=== PATIENT | male | born 1950 | race Caucasian/White ===

== ENCOUNTER → 2016-10-23 | Outpatient (CLI) | payer OTHER, MEDICARE ==
--- NOTE | 2016-10-23 15:30 | DX ---
Left Foot - 3 views Indication: Status post removal of fifth toe hardware removal. Technique: AP, oblique, and lateral views. Comparison: Left foot series dated August 01, 2016. Findings: The 2 small cortical screws have been removed from the shaft of the fifth metatarsal since July 2016. The defects from the previous hardware are unchanged. No fracture or abnormality has d eveloped. The normally mineralized bones remain normally aligned. Impression: 1. Well aligned foot. 2. No abnormality or fracture following removal of 2 cortical screws in the fifth metatarsal.
== END ==
LOC: BMCIMAGING 14:44
PROVIDERS: ATTEND Podiatrist Foot & Ankle Surgery
DX: S92.352D Displaced fracture of fifth metatarsal bone, left foot, subsequent encounter for fracture with routine healing (principal)

== ENCOUNTER → 2016-11-21 | Outpatient (CLI) | payer OTHER, MEDICARE | LOC: BMCIMAGING 10:57 | PROVIDERS: ATTEND Podiatrist Foot & Ankle Surgery | DX: Z47.89 Encounter for other orthopedic aftercare (principal) ==

== ENCOUNTER → 2016-11-30 | Outpatient (CLI) | payer OTHER, MEDICARE | LOC: BMCIMAGING 09:25 | PROVIDERS: ATTEND Podiatrist Foot & Ankle Surgery | DX: M79.672 Pain in left foot (principal) ==

== ENCOUNTER 2017-04-16 15:52 | Inpatient (IN) | payer OTHER, MEDICARE ==
--- NOTE | 2017-04-16 16:15 | CPEKG ---
Heart Rate: 60 RR Interval: 1000 P-R Interval: 132 QRSD Interval: 86 QT Interval: 440 QTC Interval: 440 P Summit: 46 QRS Summit: 13 T Wave Summit: 31 EKG Severity - NORMAL ECG - EKG Impression: SINUS RHYTHM Electronically Signed By: Jaun Mcwilliams 16-Apr-2017 16:50:06
[2017-04-16] MEDS ORDERED: NS 1,000 ML IV ONE (16:46)
--- NOTE | 2017-04-16 16:49 | EDPHY ---
H & P Stated Complaint: Exertional CP Sunday "like something sitting on chest" [place] [facility] [place] Time Seen by Provider: 04/16/17 16:21 HPI/ROS: CHIEF COMPLAINT: Chest pain HISTORY OF PRESENT ILLNESS: The patient is a 66-year-old man who comes to the emergency department complaining of chest pain on Sunday. He states that he is a runner but has been out of shape because of a recent foot surgery. He went for a longer run on Sunday and after driving home felt lightheaded when he into his house. He states that he had to kneel down and barely made up the steps onto his bed. He felt like he was going to faint. He then developed chest heaviness radiating to both axilla and, dizziness and fatigue. He denies palpitations. He felt nauseous but did not vomit. He states that he had the symptoms for about 6 hours before they resolved. Sunday and Sunday his symptoms gradually improved. He no longer had any chest heaviness but felt sluggish, groggy and dizzy. Today he was feeling better and thought about going for another run. He saw his physician Dr. Blevins [place] [facility] [place] here for cardiac evaluation. They did perform an EKG there that is unchanged from his previous EKGs. He denies any cardiac or pulmonary history. REVIEW OF SYSTEMS: Constitutional: denies: chills, fever, recent illness, recent injury EENTM: denies: blurred vision, double vision, nose congestion Respiratory: denies: cough, shortness of breath Cardiac: See HPI Gastrointestinal/Abdominal: denies: abdominal pain, diarrhea, nausea, vomiting, blood streaked stools Genitourinary: denies: dysuria, frequency, hematuria, pain Musculoskeletal: denies: joint pain, muscle pain Skin: denies: lesions, rash, jaundice, bruising Neurological: See HPI denies: headache, numbness, paresthesia, tingling Hematologic/Lymphatic: denies: blood clots, easy bleeding, easy bruising Immunologic/allergic: denies: HIV/AIDS, transplant EXAM: GENERAL: Well-appearing, well-nourished and in no acute distress. HEAD: Atraumatic, normocephalic. EYES: Pupils equal round and reactive to light, extraocular movements intact, sclera anicteric, conjunctiva are normal. ENT: TMs normal, nares patent, oropharynx clear without exudates. Moist mucous membranes. NECK: Normal range of motion, supple without lymphadenopathy or JVD. LUNGS: Breath sounds clear to auscultation bilaterally and equal. No wheezes rales or rhonchi. HEART: Regular rate and rhythm without murmurs, rubs or gallops. ABDOMEN: Soft, nontender, normoactive bowel sounds. No guarding, no rebound. No masses appreciated. BACK: No CVA tenderness, no spinal tenderness, step-offs or deformities EXTREMITIES: Normal range of motion, no pitting or edema. No clubbing or cyanosis. NEUROLOGICAL: Cranial nerves II through XII grossly intact. Normal speech, normal gait. 5/5 strength, normal movement in all extremities, normal sensation PSYCH: Normal mood, normal affect. SKIN: Warm, dry, normal turgor, no visible rashes or lesions. Source: Patient Exam Limitations: No limitations - Personal History Current Tetanus Diphtheria and Acellular Pertussis (TDAP): Unsure - Medical/Surgical History Hx Asthma: No Hx Chronic Respiratory Disease: No Hx Diabetes: No Hx Cardiac Disease: No Hx Renal Disease: No Hx Cirrhosis: No Hx Alcoholism: No Other PMH: back issues. GERD - Family History Significant Family History: No pertinent family hx - Social History Smoking Status: Never smoked Alcohol Use: Sober Drug Use: None Constitutional: Initial Vital Signs Temperature (C) 36.7 C 04/16/17 16:00 Heart Rate 74 04/16/17 16:00 Respiratory Rate 16 04/16/17 16:00 Blood Pressure 147/100 H 04/16/17 16:00 O2 Sat (%) 95 04/16/17 16:00 O2 Delivery Mode Room Air Allergies/Adverse Reactions: No Known Allergies Allergy (Unverified 04/16/17 16:01) Home Medications: Medication Instructions Recorded Acetaminophen [Tylenol 325mg (*)] 325 - 650 mg PO Q6 PRN 04/16/17 Foot Cream TP DAILY 04/16/17 Herbals/Supplements -Info Only 1 ea PO DAILY 04/16/17 Naproxen Sodium [Aleve 220 MG (*)] 220 mg PO DAILY PRN 04/16/17 Omeprazole [Prilosec 20 mg] 20 mg PO DAILY18 04/16/17 Toenail Topical Solution TP DAILY 04/16/17 Trolamine Salicylate [Aspercreme] 1 magan TP DAILY 04/16/17 Medical Decision Making - Diagnostics EKG Interpretation: An EKG obtained and was read and documented in trace view. Please see trace view for full reading and report. Sinus rhythm, no acute ischemic changes Imaging Results: Imaging Impressions Chest X-Ray 04/16/17 16:46 Impression: Clear lungs with improved aeration. No acute process has developed. ED Course/Re-evaluation: Patient's troponin is positive. I discussed this with him. I suspect he had a myocardial infarction on Sunday and is recovering. I recommended admission and likely catheterization. The patient agrees. I discussed the case with Dr. Ramin Irby who will admit. Differential Diagnosis: Partial list of the Differential diagnosis considered include but were not limited to; acute coronary disease, arrhythmia, anxiety, dehydration and although unlikely based on the history and physical exam, I also considered infection, CVA, seizure. - Data Points Laboratory Results: Laboratory Results 04/16/17 16:15 04/16/17 16:15 04/16/17 04/16/17 04/16/17 16:15 16:15 16:15 WBC 5.42 10^3/uL 10^3/uL (3.80-9.50) RBC 5.47 10^6/uL 10^6/uL (4.40-6.38) Hgb 16.2 g/dL g/dL (13.7-17.5) Hct 47.9 % % (40.0-51.0) MCV 87.6 fL fL (81.5-99.8) MCH 29.6 pg pg (27.9-34.1) MCHC 33.8 g/dL g/dL (32.4-36.7) RDW 13.7 % % (11.5-15.2) Plt Count 236 10^3/uL 10^3/uL (150-400) MPV 10.4 fL fL (8.7-11.7) Neut % (Auto) 64.0 % % (39.3-74.2) Lymph % (Auto) 24.0 % % (15.0-45.0) Bureau % (Auto) 9.6 % % (4.5-13.0) Eos % (Auto) 1.1 % % (0.6-7.6) Baso % (Auto) 0.9 % % (0.3-1.7) Nucleat RBC Rel Count 0.0 % % (0.0-0.2) Absolute Neuts (auto) 3.47 10^3/uL 10^3/uL (1.70-6.50) Absolute Lymphs (auto) 1.30 10^3/uL 10^3/uL (1.00-3.00) Absolute Monos (auto) 0.52 10^3/uL 10^3/uL (0.30-0.80) Absolute Eos (auto) 0.06 10^3/uL 10^3/uL (0.03-0.40) Absolute Basos (auto) 0.05 10^3/uL 10^3/uL (0.02-0.10) Absolute Nucleated RBC 0.00 10^3/uL 10^3/uL (0-0.01) Immature Gran % 0.4 % % (0.0-1.1) Immature Gran # 0.02 10^3/uL 10^3/uL (0.00-0.10) PT 11.9 SEC L SEC (12.0-15.0) INR 0.89 (0.83-1.16) APTT 26.4 SEC SEC (23.0-38.0) D-Dimer 0.31 ug/mLFEU ug/mLFEU (0.00-0.50) Sodium 141 mEq/L mEq/L (134-144) Potassium 3.9 mEq/L mEq/L (3.5-5.2) Chloride 105 mEq/L mEq/L (97-110) Carbon Dioxide 23 mEq/l mEq/l (22-31) Anion Gap 13 mEq/L mEq/L (8-16) BUN 11 mg/dL mg/dL (7-23) Creatinine 0.9 mg/dL mg/dL (0.7-1.3) Estimated GFR > 60 Glucose 81 mg/dL mg/dL (70-100) Calcium 9.4 mg/dL mg/dL (8.5-10.4) Troponin I 0.039 ng/mL H ng/mL (0-0.034) Medications Given: Discontinued Medications Sodium Chloride (Ns) 1,000 mls @ 0 mls/hr IV ONCE ONE; Wide Open PRN Reason: Protocol Stop: 04/16/17 16:47 Last Admin: 04/16/17 16:50 Dose: 1,000 mls Departure - Departure Disposition: [facility] Inpatient Acute Clinical Impression: Chest pain Qualifiers: Chest pain type: unspecified Qualified Code(s): R07.9 - Chest pain, unspecified Condition: Fair
[2017-04-16 16:52] LABS: % IMMATURE GRANULYOCYTES 0.4 % (0.0-1.1); ABSOLUTE IMMATURE GRANULOCYTES 0.02 10^3/uL (0.00-0.10); ADD DIFF? NO; ADD MORPH? NO; ADD SCAN? NO; ATYPICAL LYMPHOCYTE FLAG 10 (0-99); FRAGMENT RBC FLAG 0 (0-99); HEMATOCRIT 47.9 % (40.0-51.0); HEMOGLOBIN 16.2 g/dL (13.7-17.5); LEFT SHIFT FLG 0 (0-99); LIPEMIA HEMOLYSIS FLAG 90 (0-99); MEAN CELL HEMOGLOBIN 29.6 pg (27.9-34.1); MEAN CELL HEMOGLOBIN CONCENTR. 33.8 g/dL (32.4-36.7); MEAN CELL VOLUME 87.6 fL (81.5-99.8); MEAN PLATELET VOLUME 10.4 fL (8.7-11.7); PLATELET CLUMPS FLAG 0 (0-99); PLATELET COUNT 236 10^3/uL (150-400); RED BLOOD CELL COUNT 5.47 10^6/uL (4.40-6.38); RED CELL DISTRIBUTION WIDTH 13.7 % (11.5-15.2)
[2017-04-16 16:59] LABS: ANION GAP 13 mEq/L (8-16); CALCIUM 9.4 mg/dL (8.5-10.4); CARBON DIOXIDE 23 mEq/l (22-31); CHLORIDE 105 mEq/L (97-110); CREATININE 0.9 mg/dL (0.7-1.3); GLOMERULAR FILTRATION RATE > 60; GLUCOSE 81 mg/dL (70-100); POTASSIUM 3.9 mEq/L (3.5-5.2); SODIUM 141 mEq/L (134-144)
[2017-04-16 17:04] LABS: INR 0.89 (0.83-1.16); PROTIME(PATIENT) 11.9 SEC (12.0-15.0)
[2017-04-16 17:05] LABS: APTT 26.4 SEC (23.0-38.0)
[2017-04-16 17:12] LABS: TROPONIN I 0.039 ng/mL (0-0.034)
[2017-04-16] MEDS ORDERED: NITROGLYCERIN 0.4 MG BTL SL PRN (21:15)
[2017-04-16] MEDS ORDERED: ONDANSETRON 4 MG/2 ML VIAL IVP PRN (21:15)
[2017-04-16] MEDS ORDERED: NON-FORMULARY NEW DRUG (Omeprazole [Prilosec 20 Mg] 20 MG) PO SCH (21:30)
--- NOTE | 2017-04-16 21:35 | GHP ---
[f rep st] HISTORY AND PHYSICAL DATE OF ADMISSION: 04/16/2017 CHIEF COMPLAINT: Dizziness. HISTORY OF PRESENT ILLNESS: This is a 66-year-old male, with history of GERD and low back pain. He was referred to [facility] emergency department from the [facility] due t o concerns for acute coronary syndrome. The patient reports having some hardware removed from his foot in September. Since then, he has gone back into running. He has been running intermittently for the past couple of months. He has been p utting on weight. On Sunday, he went for a 2-mile run where he felt "sluggish." He then increased his tempo for the remaining of his run where he felt somewhat better. When he got back to his house and walked in the door, he got hit with a cool blast of air and immediately felt very dizzy with so me chest tightness, as well as a sensation of weight on his shoulders. He immediately crawled into bed where he lay for 2 hours and slowly improved. He took some aspirin. Since Sunday, he has erlinda nued to have occasional dizziness. He was at the [facility] today while his was gettin g a colonoscopy, and thought he should get things checked out since he continues to have some dizzin ess. He denies any chest pain. PAST MEDICAL HISTORY: 1. GERD. 2. Low back pain. PAST SURGICAL HISTORY: 1. Foot surgery. 2. Kidney stone removal. 3. Cataract surgery. MEDICATIONS: Reviewed. Refer to [employer] for details. ALLERGIES: No known drug allergies. SOCIAL HISTORY: He denies any alcohol, tobacco, or illicit drug use. FAMILY HISTORY: Significant for coronary artery disease in his mother who had a 3-vessel CABG in he r 70s. REVIEW OF SYSTEMS: Comprehensive 10-point review of systems was done and is negative, except for as mentioned in the HPI. PHYSICAL EXAMINATION: VITAL SIGNS: Blood pressure 154/102, heart rate 71, respiratory rate 17, O2 saturation 93% on room air. Temperature afebrile. GENERAL: No acute distress. HEAD: Normocephal ic, atraumatic. EYES: PERRLA. Sclerae anicteric. MOUTH: Moist mucous membranes. NECK: Supple. No lymphadenopathy. CARDIOVASCULAR: S1-S2. No murmurs, rubs, clicks, gallops. No JVD. No lowe r extremity edema. PULMONARY: Lungs are clear. No wheezes, rales, or rhonchi. Normal respiratory effort. ABDOMEN: Soft, nontender, nondistended. No guarding or rebound tenderness. Normoactive bowel sounds. EXTREMITIES: No clubbing or cyanosis. NEURO: Cranial nerves 2-12 grossly intact. No focal motor or sensory deficits. SKIN: Clear, no rashes. DIAGNOSTICS: EKG, which I visualized and personally interpreted, showed sinus rhythm, rate 60 beats per minute, no acute ischemic changes. Chest x-ray: Lungs are clear. No signs of pneumonia. Hea rt was normal size. WBC is 5.4, hemoglobin 16.2, hematocrit 47.9, platelets 236. D-dimer unremarkable. Sodium 141, pot assium 3.9, chloride 105, BUN 11, creatinine 0.9, glucose 81. Troponin was. 0.039. ASSESSMENT/PLAN: This is a 66-year-old male, presenting with: 1. Chest discomfort that occurred on Sunday after going for a run, with persistent dizziness, and a feeling of malaise concerning for acute coronary syndrome./unstable angina. Plan: The patient elzbieta l be placed on observation where we will cycle his troponins. I discussed further risk stratificati on with the patient, which includes stress test versus cardiac catheterization. In this situation, I think it would be reasonable for him to go straight to cardiac catheterization. I will give the o n-call coat finisher a call to discuss this with the patient in the morning to decide what to do next . 2. Elevated blood pressure without history of hypertension. Plan: Given the patient's presentatio n, I will start him on metoprolol 25 mg b.i.d. We will continue to monitor his blood pressure. 3. History of gastroesophageal reflux disease. Plan: Continue proton pump inhibitor. /[id number]/MODL
[2017-04-16] MEDS: METOPROLOL TARTRATE 25 MG TAB PO SCH (22:28)
[2017-04-17 07:25] LABS: CHOLESTEROL 251 mg/dL (140-220); CHOLESTEROL/HDL RATIO 5.46 RATIO (1.00-4.97); HIGH DENSITY LIPOPROTEIN 46 mg/dL (40-65); LDL/HDL RATIO 3.83 RATIO (1.00-3.64); LOW DENSITY LIPOPROTEIN 176 mg/dL (80-100); NON-HIGH DENSITY LIPOPROTEIN 205 mg/dL (90-129); TRIGLYCERIDE 147 mg/dL (40-150); VERY LOW DENSITY LIPOPROTEINS 29 mg/dL (8-25)
[2017-04-17 10:52] LABS: COLOR PALE YELLOW; LEUKOCYTE ESTERASE,URINE NEGATIVE (NEGATIVE); NITRITE,URINE NEGATIVE (NEGATIVE)
[2017-04-17] MEDS: PANTOPRAZOLE SODIUM 40 MG TAB PO SCH ×2 (11:06→23:01)
[2017-04-17] MEDS: ASPIRIN EC 81 MG TAB PO SCH (11:06)
--- NOTE | 2017-04-17 13:10 | HOSPPROG ---
Hospitalist Progress Note Assessment/Plan: # CP/dizziness/indet trops - appreciate cards evaluation - LDL 176 - aspirin/BB # urinary retention - start flomax # htn - metop # GERD - ppi Subjective: no acute overnight events Objective: Vital Signs Temp Pulse Resp BP Pulse Ox 36.4 C 63 14 127/91 H 94 04/17/17 11:46 04/17/17 11:46 04/17/17 11:46 04/17/17 11:46 04/17/17 11:46 04/16/17 04/17/17 04/18/17 05:59 05:59 05:59 Intake Total 1050 Output Total 325 450 Balance 725 -450 PT 11.9 SEC (12.0-15.0) L 04/16/17 16:15 INR 0.89 (0.83-1.16) 04/16/17 16:15 ECG personally reviewed CXR personally reviewed chart reviewed - Physical Exam Constitutional: no apparent distress, appears nourished Cardiovascular: regular rate and rhythym, no murmur, rub, or gallop Respiratory: no respiratory distress, no rales or rhonchi, clear to auscultation Gastrointestinal: normoactive bowel sounds, other (suprapubic tenderness), No guarding, No rebound ICD10 Worksheet Patient Problems: Problems Problem Status Onset Chest pain Acute
[2017-04-17] MEDS ORDERED: diphenhydrAMINE 25 MG CAP PO ONE (13:29)
[2017-04-17] MEDS ORDERED: DIAZEPAM 5 MG TAB PO ONE (13:29)
[2017-04-17] MEDS: METOPROLOL TARTRATE 25 MG TAB PO SCH ×2 (13:33→20:19)
[2017-04-17] MEDS ORDERED: LIDOCAINE 1% 300 MG/30 ML SDV ONE (14:17)
[2017-04-17] MEDS ORDERED: IOPAMIDOL (ISOVUE-370) 150 ML BTL IV ONE (14:17)
[2017-04-17] MEDS ORDERED: MIDAZOLAM 2 MG/2 ML VIAL ONE (14:17)
[2017-04-17] MEDS ORDERED: fentaNYL 100 MCG/2 ML INJ ONE (14:17)
[2017-04-17] MEDS ORDERED: ATROPINE SULFATE 1 MG/10 ML SYR IVP PRN (16:34)
[2017-04-17] MEDS ORDERED: NITROGLYCERIN 0.4 MG BTL SL PRN (16:34)
--- NOTE | 2017-04-17 16:44 | PDDXCAT ---
Diagnostic Cath Note - . Date: 04/17/17 Measurement Coordinator: Eddi Indication: other (Chest pain and elevated troponin) - Procedure Access: right groin Procedure: left heart catheterization, coronary angiography, left ventriculogram - Materials Left Heart Cath size: 6F Left Heart Cath materials: standard multipack (JL4, JR4, pigtail) - Findings-Left Heart Catheterization LM: Normal. LAD: Proximal to mid-LAD with mild irregularities; 40-50% stenosis at the junction of the mid and distal thirds. First diagonal branch with a 70% ostial lesion. LCX: Mid-circumflex 60-70%. RCA: Mid-RCA 60-70%. Ramus: Proximal 80%. EDP: 15 mmHg LVEF: 50-55% Wall motion: No regional variation in contractility. Complications: None Estimated blood loss: <50ml Closure method: Angioseal Assessment: 1) Preserved LV systolic function. 2) Multi-vessel CAD. Plan: CT surgery consult for CABG. Patient Problems: Problems Problem Status Onset Chest pain Acute
[2017-04-17] MEDS: ACETAMINOPHEN 325 MG TAB PO PRN ×2 (18:31→23:05)
[2017-04-17] MEDS: TAMSULOSIN HCL 0.4 MG CAP PO SCH (18:31)
--- NOTE | 2017-04-17 19:19 | GCON ---
[f rep st] CONSULTATION DATE OF CONSULTATION: 04/17/2017 REFERRING PHYSICIAN: Ayden Hair MD REASON FOR CONSULTATION: Chest discomfort and elevated troponin. HISTORY: The patient is a 66-year-old male with no prior cardiac history. On Sunday last week, he went out for a run and says that he felt very sluggish. When he returned from his run, he walked in to some cold air in his home and experienced a sensation like a heavy weight across his shoulders an d neck. He felt very lightheaded. He lay down for a while, and eventually his symptoms improved. Over the next couple days, he did not have return of the weight-like discomfort but did have intermi ttent dizzy spells. Yesterday, his was here having a colonoscopy performed, and he decided to go to the emergency room to be evaluated. There, his vital signs and his ECG were normal. However, his troponin was minimally elevated at 0.039. Subsequent troponins have returned at 0.038 0.040. As mentioned, he has no prior cardiac history. He has not had any previous cardiac evaluation. His cardiac risk profile is notable for the absence of hypertension and diabetes. His cholesterol is e levated. He has never been a smoker. His mother had bypass surgery in her early 70s. He has not h ad any symptoms suggestive of arrhythmias or CHF. PAST MEDICAL HISTORY: 1. Gastroesophageal reflux. 2. Chronic back pain. PAST SURGICAL HISTORY: 1. Cataract surgery. 2. Kidney stone retrieval. 3. Foot surgery. MEDICATIONS: Please refer to the medication section of the electronic record. He is on no cardioac tive medications. ALLERGIES: No known drug allergies. FAMILY HISTORY: Notable for his mother's bypass surgery. SOCIAL HISTORY: He is . He has 1 adult daughter. He is retired and currently engages in [employer]. He tries to exercise regularly. Alcohol consumption is minimal. REVIEW OF SYSTEMS: Apart from the symptoms listed in the history of present illness, a 10-point rev iew is negative. PHYSICAL EXAMINATION: VITAL SIGNS: Heart rate in the 90s with sinus rhythm on the monitor, blood p ressure 127/91, O2 saturation 94% on room air. GENERAL: Well-developed, thin male in no acute dist ress. He is alert and oriented x3. HEAD AND NECK: No scleral icterus. Mucous membranes moist. C arotid pulses 2+ without bruits. There is no JVD. CHEST: Lung adorno clear to auscultation. CARD IAC: Regular rate and rhythm with normal S1 and S2. There is no murmur or gallop. ABDOMEN: Soft, nondistended, nontender with normal bowel sounds. EXTREMITIES: 2+ pulses and no peripheral edema. LABORATORY STUDIES: His troponin levels are outlined in the history of present illness. Sodium 141 , potassium 3.9, BUN and creatinine 11 and 0.9. Total cholesterol is 251 with HDL 46, LDL 176, and triglycerides 147. His CBC demonstrates a white blood cell count of 5.42 with hemoglobin and hemato crit of 16.2 and 47.9. Platelet count is 236,000. ECG: His ECG demonstrates normal sinus rhythm. There are no Q-waves or conduction system disturban velma. No ST-T wave abnormalities suggestive of ischemia. IMPRESSION: This is a 66-year-old male with a low-risk profile for coronary artery disease, who pre sents with symptoms of a heavy weight across his shoulders in conjunction with some dizziness. His original symptoms were precipitated by physical exertion. He has not had a return of the discomfort but has continued to have intermittent dizziness. He has mildly elevated troponin without an appre ciable rise and fall. PLAN: The patient's current clinical situation was reviewed with him, and options for diagnostic ev aluation of his cardiac status were reviewed. Currently, the plan is to proceed with cardiac cathet erization later today. Further diagnostic and therapeutic decisions await the outcome of that study . /[id number]/MODL
[2017-04-17] MEDS ORDERED: LACTULOSE 20 GM/30 ML UDCUP PO PRN (21:57)
[2017-04-17] MEDS ORDERED: MAGNESIUM HYDROXIDE 30 ML UDCUP PO PRN (21:57)
[2017-04-17] MEDS ORDERED: POLYETHYLENE GLYCOL 3350 17 GM PKT PO PRN (21:57)
[2017-04-17] MEDS ORDERED: BISACODYL 10 MG SUPP PR PRN (21:57)
[2017-04-17] MEDS ORDERED: LIDOCAINE 2% JELLY 20 ML (UROJECT) UR ONE (22:00)
[2017-04-18] MEDS: METOPROLOL TARTRATE 25 MG TAB PO SCH ×2 (08:22→20:54)
[2017-04-18] MEDS: ATORVASTATIN CALCIUM 40 MG TAB PO SCH (08:23)
[2017-04-18] MEDS: TAMSULOSIN HCL 0.4 MG CAP PO SCH (08:23)
[2017-04-18] MEDS: ASPIRIN EC 81 MG TAB PO SCH (08:23)
[2017-04-18] MEDS: PANTOPRAZOLE SODIUM 40 MG TAB PO SCH (08:24)
[2017-04-18] MEDS: SENNOSIDES/DOCUSATE SODIUM TAB PO SCH ×2 (08:25→21:05)
[2017-04-18] MEDS: TOLNAFTATE TP SCH (08:25)
--- NOTE | 2017-04-18 09:25 | ECHO ---
[id number] + + [address] : : [place] [address] : : [phone] + + Adult Echocardiographic Report + -------+ :Name: CHUY ALVAREZ CStudy Date: 04/18/2017 08:00 AM : : Hospital Admission Number: [id number] Locati on: 205: :: 1950 Gender: Male Height: 70 in : :Age: 66 yrs Race: WH Weight: 158 lb : :Reason For Study: CAD : : BSA: 1.9 meter s2 : + -------+ MMode/2D Measurements \T\ Calculations IVSd: 0.52 cm LVIDd: 4.9 cm FS: 33.8 % Ao root diam: LVPWd: 0.82 cm LVIDs: 3.2 cm EDV(Teich): 3.5 cm 111.1 ml LA dimension: ESV(Teich): 3.5 cm 41.7 ml EF(Teich): 62.4 % LVLd ap4: 8.1 cm SV(MOD-sp4): EDV(MOD-sp4): 33.0 ml 56.0 ml LVLs ap4: 6.4 cm ESV(MOD-sp4): 23.0 ml EF(MOD-sp4): 58.9 % Normal Measurement Values: + + :LVIDd (3.5-5.7cm) IVSd (0.6-1.1cm) LVPWd (0.6-1.1cm) Aortic Root (2.0-3.7cm)Left Atrium (1.5-4.0cm): :LV Vol(d) (76-115ml) LV Vol(s) (29-48ml) Ejec Fraction (50-65%)PV Caden (0.6- 1.2m/s) TV Caden (0.4-1.0m/s) : :MV E Caden (0.8-1.0m/s)MV A Caden (0.3-1.0m/s)LVOT Caden (0.7-1.2m/s) Asc Ao Caden ( 0.9-1.8m/s) : + + Doppler Measurements \T\ Calculations MV E max caden: 48.9 cm/sec Ao V2 max: 108.6 cm/sec MV A max caden: 61.2 cm/sec Ao max P.7 mmHg MV E/A: 0.80 Left Ventricle The left ventricle is normal in size. There is normal left ventricular wall thickness. Left ventricular systolic function is normal. Ejection Fraction = 60-65%. No regional wall motion abnormalities noted. Right Ventricle The right ventricle is normal in size and function. Atria The left atrial size is normal. Right atrial size is normal. The interatrial septum is intact with no evidence for an atrial septal defect. Mitral Valve The mitral valve is normal in structure and function. There is no evidence of mitral valve prolapse. There is no mitral valve stenosis. Tricuspid Valve Normal tricuspid valve. There is trace tricuspid regurgitation. Aortic Valve The aortic valve is trileaflet. The aortic valve opens well. There is no aortic stenosis. There is no aortic insufficiency. Pulmonic Valve The pulmonic valve is normal in structure and function. There is no pulmonic valvular regurgitation. Great Vessels The aortic root is normal size. Pericardium/Pleural There is no pericardial effusion. Conclusion A complete two-dimensional transthoracic echocardiogram was performed (2D, M-mode, Doppler and color flow Doppler). Left ventricular systolic function is normal. Ejection Fraction = 60-65%. Normal appearing valvular structures. There is trace tricuspid regurgitation. Final Reading Physician: Perla Sommers signed on 04/18/2017 09:23 AM Ordering Physician: Ty Montague Performed By: Nicole Simpson, [facility]
[2017-04-18] MEDS: ACETAMINOPHEN 325 MG TAB PO PRN ×2 (10:40→20:53)
--- NOTE | 2017-04-18 11:31 | HOSPPROG ---
Hospitalist Progress Note Assessment/Plan: # multivessel CAD - appreciate cards evaluation - LDL 176 - statin started - aspirin/BB - CABG likely Sunday # urinary retention/dysuria - arcos placed - check CT (has hx of renal stones) - urology consulted # htn - metop # GERD - ppi Subjective: ongoing dizziness Objective: Vital Signs Temp Pulse Resp BP Pulse Ox 36.5 C 75 10 L 112/76 95 04/18/17 07:50 04/18/17 07:50 04/18/17 07:50 04/18/17 07:50 04/18/17 07:50 04/17/17 04/18/17 04/19/17 05:59 05:59 05:59 Output Total 425 Balance -425 PT 11.9 SEC (12.0-15.0) L 04/16/17 16:15 INR 0.89 (0.83-1.16) 04/16/17 16:15 tele reviewed - benign discussed with Dr Montague ICD10 Worksheet Patient Problems: Problems Problem Status Onset Chest pain Acute
--- NOTE | 2017-04-18 12:37 | PDCARPN ---
Cardiology Progress Note Assessment/Plan: Coronary Artery Disease- No further angina. Minimal troponin elevation. CABG planned for tomorrow. Long-term aggressive secondary prevention. Hyperlipidemia- Statin therapy started. Goal LDL less than 70. Currently at 176. 04/18/17 12:36 Subjective: No complaints. Reviewed/Discussed With: family, hospitalist Objective: Vital Signs (8 Hrs) Temp Pulse Resp BP Pulse Ox 04/18/17 11:28 80 17 92 04/18/17 07:50 36.5 C 75 10 L 112/76 95 Intake/Output (24 Hrs) 04/17/17 04/18/17 04/19/17 05:59 05:59 05:59 Output Total 425 Balance -425 Output: Urine (ml) 425 Catheter 350 Urinal 75 Other: Number of Voids Urinal 1 Bladder Scan Volume (ml) Urinal 200 Result Diagrams: 04/16/17 16:15 04/16/17 16:15 - Physical Exam Constitutional: WDWN, no apparent distress Eyes: anicteric sclera Ears, Nose, Mouth, Throat: moist mucous membranes Cardiovascular: regular rate and rhythm, no murmurs, no rubs, no gallops Respiratory: clear to auscultate bilat Gastrointestinal: normoactive bowel sounds, no tenderness, no masses Skin: no rashes, no edema Neurologic: AAOx3 Psychiatric: not anxious ICD10 Worksheet Patient Problems: Problems Problem Status Onset Chest pain Acute
[2017-04-18 16:46] LABS: HEMOGLOBIN A1C 5.3 % (4.0-6.0)
[2017-04-18] MEDS ORDERED: CHLORHEXIDINE GLUC HIBICLENS 118 ML BTL TP SCH (21:00)
[2017-04-18] MEDS: MUPIROCIN 2% 22 GM OINT NS SCH (21:44)
[2017-04-19 05:27] LABS: ANION GAP 9 mEq/L (8-16); CALCIUM 8.6 mg/dL (8.5-10.4); CARBON DIOXIDE 20 mEq/l (22-31); CHLORIDE 111 mEq/L (97-110); GLOMERULAR FILTRATION RATE > 60; GLUCOSE 89 mg/dL (70-100); POTASSIUM 4.2 mEq/L (3.5-5.2); SODIUM 140 mEq/L (134-144)
[2017-04-19] MEDS ORDERED: DOPamine/DEXTROSE/250 ML BAG IV ONE (06:26)
[2017-04-19] MEDS ORDERED: POTASSIUM Cl (KCl) 20 MEQ/50 ML BAG IV ONE (06:26)
[2017-04-19] MEDS ORDERED: MILRINONE/DEXTROSE/100 ML BAG IV ONE (06:26)
[2017-04-19] MEDS ORDERED: ADENOSINE 6 MG/2 ML VIAL ONE (06:26)
[2017-04-19] MEDS ORDERED: CALCIUM CHLORIDE 1 GM/10 ML INJ ONE (06:26)
[2017-04-19] MEDS ORDERED: niCARdipine/NACL/200 ML BAG IV ONE (06:26)
[2017-04-19] MEDS ORDERED: MAGNESIUM SULFATE 1 GM/2 ML VIAL ONE (06:26)
[2017-04-19] MEDS ORDERED: LIDOCAINE 2% 100 MG/5 ML SYR ONE ×2 (06:26→11:23)
[2017-04-19] MEDS ORDERED: AMIODARONE HCL 150 MG/3 ML VIAL ONE (06:26)
[2017-04-19] MEDS ORDERED: NA BICARBONATE 50 MEQ/50 ML VIAL ONE ×2 (06:26→16:27)
[2017-04-19] MEDS ORDERED: CITRATE DEXTROSE SOLN 500 ML BAG ONE (06:26)
[2017-04-19] MEDS ORDERED: ceFAZolin 1 GM VIAL ONE (06:26)
[2017-04-19] MEDS ORDERED: ALBUMIN 5% 250 ML BOTTLE IV ONE (06:26)
[2017-04-19] MEDS ORDERED: methylPREDNISolone SOD SUCC 1 GM/8 ML VIAL ONE (06:26)
[2017-04-19] MEDS ORDERED: HEPARIN 10,000 UNIT/10 ML MDV ONE (06:26)
[2017-04-19] MEDS ORDERED: AMINOCAPROIC ACID 5 GM/20 ML VIAL ONE (06:26)
[2017-04-19] MEDS ORDERED: PROTAMINE SULFATE 50 MG/5 ML VIAL IVP ONE (06:26)
[2017-04-19] MEDS ORDERED: niCARdipine/NACL 200 ML IV ONE (09:00)
[2017-04-19] MEDS ORDERED: VERAPAMIL 5 MG, NITROGLYCERIN 2.5 MG, HEPARIN 500 UNIT, SODIUM BICARBONATE 0.2 MEQ in L... MISC ONE (09:00)
[2017-04-19] MEDS ORDERED: PHENYLEPHRINE HCL 50 MG in NS 250 ML IV ONE (09:00)
[2017-04-19] MEDS ORDERED: ceFAZolin 2 GM/DEXTROSE 100 ML IV ONE (09:00)
[2017-04-19] MEDS ORDERED: MANNITOL 25% 12.5 GM/50 ML VIAL IV ONE (09:00)
[2017-04-19] MEDS ORDERED: NS 1,000 ML IV ONE (09:00)
[2017-04-19] MEDS ORDERED: NOREPINEPHRINE BITARTRATE 16 MG in NS 250 ML IV ONE (09:00)
[2017-04-19] MEDS ORDERED: INSULIN REGULAR HUMAN 100 UNIT in NS 100 ML IV ONE (09:00)
[2017-04-19] MEDS ORDERED: CITRATE DEXTROSE SOLN 500 ML BAG MISC ONE (09:00)
[2017-04-19] MEDS ORDERED: SODIUM BICARBONATE 20 MEQ, LIDOCAINE 1% 10 ML in NORMOSOL-R 1,000 ML MISC ONE (09:00)
[2017-04-19] MEDS ORDERED: AMINOCAPROIC ACID 5 GM/20 ML VIAL IV ONE (09:00)
[2017-04-19] MEDS: ASPIRIN EC 81 MG TAB PO SCH (09:13)
[2017-04-19] MEDS: ATORVASTATIN CALCIUM 40 MG TAB PO SCH (09:14)
[2017-04-19] MEDS: TOLNAFTATE TP SCH (09:15)
[2017-04-19] MEDS: PANTOPRAZOLE SODIUM 40 MG TAB PO SCH (09:15)
[2017-04-19] MEDS: SENNOSIDES/DOCUSATE SODIUM TAB PO SCH (09:15)
[2017-04-19] MEDS: TAMSULOSIN HCL 0.4 MG CAP PO SCH (09:15)
[2017-04-19] MEDS: MUPIROCIN 2% 22 GM OINT NS SCH ×2 (09:21→21:29)
[2017-04-19] MEDS: METOPROLOL TARTRATE 25 MG TAB PO SCH (09:22)
[2017-04-19] MEDS ORDERED: MINERAL OIL 10 ML VIAL ONE (09:27)
[2017-04-19] MEDS ORDERED: VERAPAMIL 5 MG/2 ML VIAL ONE ×2 (09:27→11:18)
[2017-04-19] MEDS ORDERED: PAPAVERINE HCL 60 MG/2 ML SDV ONE ×2 (09:27→11:18)
--- NOTE | 2017-04-19 10:35 | BCON ---
[f rep st] BEHAVIORAL HEALTH CONSULTATION DATE OF CONSULTATION: 04/18/2017 Patient seen at the request of Dr. Montague with the patient's permission. IMPRESSION: 1. Unstable angina pectoris with evidence of 3 vessel disease. 2. History of nephrolithiasis with prior stone removal. 3. Previous cataract surgery. 4. Gastroesophageal reflux disease. 5. Chronic back pain. 6. Dysuria with obstructive symptoms on admission, negative for urinary tract infection. Urology diaz s been consulted. RECOMMENDATIONS: This patient should undergo coronary artery revascularization surgically on this a dmission. Consent was obtained from the patient. Risks and complications including alternatives with multivessel stenting or medical therapy were also reviewed. I will review this with his who is an managing attorney this afternoon when she is available. Overall risk is 1%. Bleeding, infection, stroke, and heart attack, are all less than 1%. CHIEF COMPLAINT: This is a 66-year-old gentleman, with a history of GERD and back pain, who was pre sented with acute coronary syndrome. He had gone for a run and returned and felt dizzy, lightheaded, with some pressure in his chest as well as a sensation of weight on his shoulders. He laid down, to ok aspirin. He continued to have dizziness and brought himself to the ER. Diagnostic cath revealed 3 vessel disease with good LV function. He did have a peak troponin of 0.04 . He is referred for surgical intervention. MEDICAL HISTORY: As stated. SURGERIES: Include foot surgery. ALLERGIES: Denied. MEDICATIONS: Were reviewed in the chart. REVIEW OF SYSTEMS: All 10 systems were reviewed. He does complain of persistent low back pain which is chronic and unchanged. Otherwise all 10 systems are unremarkable except for admitting history an d physical. FAMILY HISTORY: Significant for coronary disease in his mother who had coronary bypass grafting in her 70s. PHYSICAL EXAMINATION: GENERAL: This is a slender, middle-aged gentleman, in no apparent distress. A lert, oriented. HEENT: Normocephalic. CATIA, EOMI. NECK: Without bruit, adenopathy or thyromegaly. H EART: Rate is regular without murmur. LUNGS: Clear. ABDOMEN: Soft, nontender. Bowel sounds are activ e. RECTAL AND GENITAL: Deferred. Catheterization report is documented separately. Echo revealed ejection fraction 60%-65% with normal appearing valves and no significant structural a bnormalities. /[id number]/MODL
--- NOTE | 2017-04-19 10:50 | PDHPUP ---
History & Physical Update H&P update statement: This history and physical update is based on an assessment of the patient which was completed after admission or registration (within 24 hours), but prior to the surgery/procedure. H&P changes: CT abd notable for small left sided kidney stone, periurethral calcification and chronic prostatitis; no hydronephrosis or hydroureter. Gómez in place and draining well. Carotid US negative for disease or abnormal vertebral flow. A1c 5.3%, type and screen no antibodies. Denies CP or SOB awaiting surgery
[2017-04-19] MEDS ORDERED: MIDAZOLAM 2 MG/2 ML VIAL IVP ONE (10:54)
--- NOTE | 2017-04-19 10:59 | PDANEPAE ---
ANE History of Present Illness CAD s/f CABG ANE Past Medical History - Pulmonary History Hx Oxygen in Use at Home: No Hx Sleep Apnea: No Sleep Apnea Screening Result - Last Documented: Negative - Endocrine History Hx Diabetes: No - Renal History Hx Renal Disorders: Yes Renal History Comment: renal stones - GI History GERD: moderate (Hiatal Hernia) - Chronic Pain History Chronic Pain: Yes ANE Review of Systems - Exercise capacity METS (RN): 6 METS ANE Patient History - Allergies Allergies/Adverse Reactions: No Known Allergies Allergy (Unverified 04/16/17 16:01) - Home Medications Home Medications: Acetaminophen [Tylenol 325mg (*)] 325 - 650 mg PO Q6 PRN 04/16/17 [Last Taken 09:00] Diclofenac Sodium 1% [Voltaren Gel (*)] 1 magan TP DAILY 04/16/17 [Last Taken ] Herbals/Supplements -Info Only 1 ea PO DAILY 04/16/17 [Last Taken 04/16/17] Naproxen Sodium [Aleve 220 MG (*)] 220 mg PO DAILY PRN 04/16/17 [Last Taken Unknown] Omeprazole [Prilosec 20 mg] 20 mg PO DAILY18 04/16/17 [Last Taken 04/15/17] Tolnaftate [Formula 3] 15 ml TP DAILY 04/16/17 [Last Taken Unknown] Trolamine Salicylate [Aspercreme] 1 magan TP DAILY 04/16/17 [Last Taken 04/16/17] - NPO status NPO Since - Liquids (Date): 04/18/17 NPO Since - Liquids (Time): 21:00 NPO Since - Solids (Date): 04/18/17 NPO Since - Solids (Time): 16:30 - Smoking Hx Smoking Status: Never smoked - Alcohol Use Alcohol Use: Sober ANE Labs/Vital Signs - Labs Result Diagrams: 04/16/17 16:15 04/19/17 03:38 - Vital Signs Blood Pressure: 117/87 Heart Rate: 72 Respiratory Rate: 14 O2 Sat (%): 94 Height: 177.8 cm Weight: 69.6 kg ANE Physical Exam - Airway Neck exam: FROM Mallampati Score: Class 2 Mouth exam: poor dentition - Pulmonary Pulmonary: no respiratory distress - Cardiovascular Cardiovascular: regular rate and rhythym - ASA Status ASA Status: II ANE Anesthesia Plan Anesthesia Plan: general endotracheal anesthesia (R/B/A explained, no questions , agrees to proceed) Lines/Monitors: arterial line (by cts, femoral), central line (QL CVP), ROHITH (if goes easily)
[2017-04-19] MEDS ORDERED: DEXMEDETOMIDINE HCL 400 MCG in NS 100 ML IV SCH (11:00)
[2017-04-19] MEDS ORDERED: fentaNYL 50 MCG PATCH TD SCH (11:00)
[2017-04-19] MEDS ORDERED: DEXAMETHASONE 4 MG/ML VIAL ONE ×2 (11:22)
[2017-04-19] MEDS ORDERED: MIDAZOLAM 2 MG/2 ML VIAL ONE ×2 (11:22)
[2017-04-19] MEDS ORDERED: ROCURONIUM 100 MG/10 ML VIAL ONE (11:22)
[2017-04-19] MEDS ORDERED: REMIFENTANIL HCL 1 MG VIAL ONE (11:22)
[2017-04-19] MEDS ORDERED: PHENYLEPHRINE HCL 100 MCG/ML SYR ONE ×2 (11:22→13:04)
[2017-04-19] MEDS ORDERED: PROPOFOL/EMULSION 500 MG/50 ML BOTTLE IV ONE (11:22)
[2017-04-19] MEDS ORDERED: ONDANSETRON 4 MG/2 ML VIAL ONE (11:22)
[2017-04-19] MEDS ORDERED: LIDOCAINE HCL 160 MG/4 ML LTA KIT TP ONE (11:23)
[2017-04-19] MEDS ORDERED: epHEDrine SULFATE 10 MG/ML SYR ONE (11:23)
[2017-04-19] MEDS ORDERED: MAGNESIUM SULF 2 GM/WATER 50 ML BAG IV ONE (12:11)
[2017-04-19] MEDS ORDERED: LIDOCAINE 2% JELLY 20 ML (UROJECT) UR ONE (14:01)
--- NOTE | 2017-04-19 15:16 | GCON ---
[f rep st] CONSULTATION DATE OF CONSULTATION: 04/19/2017 REASON FOR CONSULT: Urinary retention and dysuria, history of kidney stones. HISTORY OF PRESENT ILLNESS: This is a pleasant 66-year-old male, who has previously seen Dr. Oleary for kidney stones. He is in the hospital after being referred by the [facility] for concerns of acute coronary syndrome, and is planning to undergo a cardiac procedure later today. Urologically, he is complaining of dysuria along with chronic low back pain. His dysuria started several days ago. The patient had a bladder scan, and was found to have over 200 mL in his bladder and a catheter was placed. The patient describes severe pain with insertion of catheter, now is having pain at the tip of his penis mostly associated with bowel movements. No flank discomfort. I reviewed his CT scan, both by myself and along with Dr. Holly, which potentially shows a very small fragment of a stone in the left proximal ureter, unlikely to be causing his dysuria. PAST MEDICAL HISTORY: GERD, low back pain, kidney stones. PAST SURGICAL HISTORY: Kidney stones, foot surgery, cataracts. MEDICATIONS: Reviewed. See [employer] for details. ALLERGIES: No known drug allergies. SOCIAL HISTORY: Denies alcohol, tobacco, or illicit drug use. FAMILY HISTORY: No pertinent urologic history. REVIEW OF SYSTEMS: A 10-point review of systems negative except as done in the HPI, the addition of the aforementioned chronic low-back pain, worse in the morning. PHYSICAL EXAM: VITAL SIGNS: Blood pressure 117/87, heart rate 17, respirations 14, O2 is 94, temperature 36.6. GENERAL: This is a well-developed , well-nourished male, in no acute distress. HEENT: Normocephalic, atraumatic. Extraocular movements intact. NECK: Supple. No lymphadenopathy. Trachea midline. RESPIRATORY: No accessory respiratory muscle use. CARDIAC : Regular rate. No lower extremity edema. No obvious JVD. GI: Abdomen is soft, nondistended, nontender to palpation. : No CVA tenderness right or left. No bladder distention. A catheter was in fully, draining clear urine. Urethral meatus with hypospadias. Palpation of the penile shaft was without abnormality or tenderness. INTEGUMENT: No obvious rashes or lesions. MUSCULOSKELETAL: Patient was ambulating when examined, moving all extremities without difficulty. NEURO: Patient is alert and oriented. Affect appropriate to situation. LABS: White blood cell count 5.42, hemoglobin 16.2, hematocrit 47.9, platelets 236. Chemistry: Sodium 140, potassium 4.2, chloride 111, carbon dioxide 20, anion gap 9, BUN 17, creatinine 1.6, glucose 89. PSA 3.7 in 2012. IMAGING: I personally reviewed the CT scan of his abdomen and pelvis, which does show large bilateral renal cysts, nonobstructing left renal mid pole stones , question of a small stone fragment in the left proximal ureter, a 3 mm calcified object in the area of the bulbar urethra along the Gómez catheter. ASSESSMENT AND PLAN: Urinary retention, dysuria, kidney stones. After review of this patient's imaging and discussion with Dr. Holly, recommend patient be continued on Flomax for possible sub 1 mm left ureteral stone; although this is unlikely to be contributing to his symptoms. May have Gómez catheter removed after his procedure to see if patient voids without difficulty. Also may try lidocaine to the tip of the urethra in case he does need to have Gómez replaced, for pain. Recommend he be evaluated in our office with a cystoscopy at some point to evaluate for possible calcification in the urethra or in the urethral wall, and a further discussion of management of his kidney stone burden. /[id number]/MODL MTDD
[2017-04-19] MEDS ORDERED: SUGAMMADEX SODIUM 200 MG/2 ML VIAL IVP ONE (15:22)
[2017-04-19] MEDS ORDERED: D50W 25 GM/50 ML SYR IVP PRN (15:34)
[2017-04-19] MEDS ORDERED: METOCLOPRAMIDE 10 MG/2 ML VIAL IVP PRN (15:34)
[2017-04-19] MEDS ORDERED: MAGNESIUM SULF 2 GM/WATER 50 ML IV ONE (15:34)
[2017-04-19] MEDS ORDERED: CEPACOL LOZENGE PO PRN (15:34)
[2017-04-19] MEDS ORDERED: MEPERIDINE 25 MG/ML SYR IVP PRN (15:34)
[2017-04-19] MEDS ORDERED: PANTOPRAZOLE SODIUM 40 MG in NS 100 ML IV ONE (15:34)
[2017-04-19] MEDS ORDERED: ONDANSETRON DISINTEGRATING 4 MG TAB PO PRN (15:34)
[2017-04-19] MEDS ORDERED: POTASSIUM Cl (KCl) 50 ML IV PRN (15:34)
[2017-04-19] MEDS ORDERED: SODIUM CL NASAL 45 ML BTL EACHNARE PRN (15:34)
[2017-04-19] MEDS ORDERED: NS 1,000 ML IV SCH (15:45)
--- NOTE | 2017-04-19 15:52 | POSTOPPROG ---
Post Op Note Date of Operation: 04/19/17 Surgeon: Ty Emmanuel Station Detective: Maximilian Anesthesiologist: Tai Anesthesia: GET(General Endotracheal) Pre-op Diagnosis: AMI, ASHD Procedure: CAB 4 [place]-PLCX, Jen-RCA, SVG-Dgseqdistal LAD, EVH Inf/Abcess present in the surg proc area at time of surgery?: No EBL: 50-100
[2017-04-19] MEDS ORDERED: INSULIN REGULAR HUMAN 100 UNIT in NS 100 ML IV SCH (16:00)
--- NOTE | 2017-04-19 16:02 | CPEKG ---
Heart Rate: 64 RR Interval: 938 P-R Interval: 168 QRSD Interval: 84 QT Interval: 456 QTC Interval: 471 P [place]: 43 QRS [place]: 74 T Wave [place]: 36 EKG Severity - OTHERWISE NORMAL ECG - EKG Impression: SINUS RHYTHM EKG Impression: LOW VOLTAGE IN FRONTAL LEADS Electronically Signed By: Apollo Iyer 20-Apr-2017 10:08:11
[2017-04-19 16:11] LABS: CALCULATED OXYGEN SATURATION 87 % (92-95); O2 CONCENTRATIION 100 % (0-100)
--- NOTE | 2017-04-19 16:26 | GOP ---
[f rep st] OPERATIVE REPORT DATE OF OPERATION: 04/19/2017 SURGEON: Ty Emmanuel DO COOKIE MIXER HELPER: CHARO Black ANESTHESIOLOGIST: Suraj Lujan MD PREOPERATIVE DIAGNOSIS: Non-Q-wave myocardial infarction with severe 3-vessel disease. POSTOPERATIVE DIAGNOSIS: Non-Q-wave myocardial infarction with severe 3-vessel disease. PROCEDURE PERFORMED: 1. Coronary artery bypass grafting x4 with left internal mammary artery to the posterolateral circu mflex, right internal mammary artery to the right coronary artery, saphenous vein graft to the diago nal, sequential left anterior descending artery. 2. Endoscopic vein harvest. FINDINGS: Patient was noted to have 3-vessel disease. Please see cath report for details. DESCRIPTION OF PROCEDURE: He was consented for surgery, brought to the operating room, intubated, m onitoring lines were placed. He was prepped and draped in sterile classical manner. Sternotomy was performed. Both mammary arteries were harvested. They were 2 mm vessels with excellent flow. He was heparinized, cannulated. Biventricular function appeared to be normal. The aorta was without t hickening or calcification. Cardiopulmonary bypass was begun. A cardioplegic arrest was obtained w ith antegrade cardioplegia, topical hypothermia and systemic cooling. Initially, the left internal mammary artery was brought through a lateral pericardial incision and g rafted to the mid portion of the posterior circumflex because of its high-grade lesion and large ves harris. I then elected to use vein graft on the LAD diagonal system, because the LAD lesion was 50 pro ximally and 50-60 quite distally toward the apex, and the mammary would not reach that apex; that wa s the reason for using it on a big circumflex. I therefore grafted the LAD diagonal with sequential vein graft, brought off the ascending aorta. It was my thought that competitive flow in the LAD wo uld have closed the mammary, as well. Rewarming was begun while the mammary was grafted to the main right coronary artery, just after the takeoff of the marginal branch of the right, which was probed patent from the arteriotomy. A good q uality mammary was grafted without difficulty, tacked to the epicardium. The cross-clamp was remove d with suction on the ascending aortic vent. Spontaneous cardiac activity was noted to resume. The patient was rewarmed and weaned from bypass. Heparin was reversed with protamine. The cannula was removed and oversewn. Two ventricular pacing wires, 2 pleural and 1 mediastinal drains were placed . Thymic fat and pericardium were closed. Chest was closed in standard fashion. Patient was retur arianna to ICU in stable condition. /[id number]/MODL
[2017-04-19] MEDS ORDERED: SODIUM BICARBONATE 50 MEQ/50 ML SYR IVP ONE (16:45)
[2017-04-19] MEDS: fentaNYL 100 MCG/2 ML INJ IVP PRN ×2 (17:57→22:06)
[2017-04-19] MEDS ORDERED: ceFAZolin 2 GM/DEXTROSE 100 ML IV SCH (18:00)
--- NOTE | 2017-04-19 18:44 | POSTANESTH ---
Post Anesthetic Evaluation Cardiovascular Status: Normal, Stable Respiratory Status: Normal, Stable Level of Consciousness/Mental Status: Can Participate in Eval, Moderately Sleepy Pain Control: Adequate, Prn Tx Ordered Nausea/Vomiting Control: Adequate, Prn Tx Ordered Complications Possibly Related to Anesthesia: None Noted
[2017-04-19] MEDS ORDERED: NA BICARBONATE 50 MEQ/50 ML VIAL IV ONE (18:45)
[2017-04-19] MEDS: ALBUMIN 5% 250 ML IV PRN ×2 (20:04→21:02)
[2017-04-19 20:26] LABS: BASE EXCESS -3.9 mEq/L (-2.5-2.5); BICARBONATE 22 mEq/L (22-26); MEASURED OXYGEN SATURATION 94 % (92-95); TCO2 23 mEq/L (23-27)
[2017-04-19 20:27] LABS: PCO2 41 mmHg (34-38); PO2 71 mmHg (65-75)
[2017-04-19] MEDS: ceFAZolin 2 GM/DEXTROSE 100 ML IV SCH (21:28)
[2017-04-20] MEDS: HYDROCODONE/APAP 5/325 TAB PO PRN ×4 (00:57→20:06)
[2017-04-20] MEDS: fentaNYL 100 MCG/2 ML INJ IVP PRN (02:05)
[2017-04-20] MEDS ORDERED: AMIODARONE A.FIB-18HR INFSN (ORDER 3/3) IV ONE (02:30)
[2017-04-20 04:17] LABS: % IMMATURE GRANULYOCYTES 0.4 % (0.0-1.1); ABSOLUTE IMMATURE GRANULOCYTES 0.05 10^3/uL (0.00-0.10); ADD DIFF? NO; ADD MORPH? NO; ADD SCAN? NO; ATYPICAL LYMPHOCYTE FLAG 0 (0-99); FRAGMENT RBC FLAG 0 (0-99); HEMATOCRIT 33.5 % (40.0-51.0); HEMOGLOBIN 11.3 g/dL (13.7-17.5); LEFT SHIFT FLG 10 (0-99); LIPEMIA HEMOLYSIS FLAG 80 (0-99); MEAN CELL HEMOGLOBIN 29.7 pg (27.9-34.1); MEAN CELL HEMOGLOBIN CONCENTR. 33.7 g/dL (32.4-36.7); MEAN CELL VOLUME 88.2 fL (81.5-99.8); MEAN PLATELET VOLUME 10.5 fL (8.7-11.7); PLATELET CLUMPS FLAG 0 (0-99); PLATELET COUNT 123 10^3/uL (150-400); RED CELL DISTRIBUTION WIDTH 14.3 % (11.5-15.2)
[2017-04-20 04:30] LABS: ANION GAP 9 mEq/L (8-16); CARBON DIOXIDE 21 mEq/l (22-31); CHLORIDE 115 mEq/L (97-110); CREATININE 0.8 mg/dL (0.7-1.3); GLOMERULAR FILTRATION RATE > 60; GLUCOSE 96 mg/dL (70-100); POTASSIUM 4.4 mEq/L (3.5-5.2); SODIUM 145 mEq/L (134-144)
[2017-04-20] MEDS: ceFAZolin 2 GM/DEXTROSE 100 ML IV SCH ×3 (05:08→21:24)
[2017-04-20] MEDS: HEPARIN 5,000 UNIT/0.5 ML SYR SC SCH ×3 (05:08→21:23)
[2017-04-20 06:30] LABS: CALCULATED OXYGEN SATURATION 89 % (92-95); O2 CONCENTRATIION 40 % (0-100)
--- NOTE | 2017-04-20 07:38 | SOAPPROG ---
SOAP Progress Note Assessment/Plan: POD#1: CABGx4 (FISHER-circ, WIN-RCA, SVG-diag, SVG-LAD) Unstable angina/severe 3VD s/p CABGx4 - Transfer to PCU - FC as per urology, CT to remain to water seal d/t air leak, PWs wrapped and capped, AL out - BB/ASA/statin when appropriate - Heparin SQ/SCDs for DVT prophylaxis Acute blood loss anemia - Stable without the need for BP transfusions Dysuria, urinary retention, uretal/kidney stones - Mgmt as per urology GERD - Continue PPI Subjective: Denies CP/SOB Objective: Vital Signs Temp Pulse Resp BP Pulse Ox 36.4 C 87 20 103/66 91 L 04/20/17 04:00 04/20/17 06:00 04/20/17 06:00 04/20/17 06:00 04/20/17 06:00 Laboratory Results 04/20/17 04:10 04/20/17 04:10 04/19/17 04/20/17 04/21/17 05:59 05:59 05:59 Intake Total 840 2360 Output Total 520 2105 Balance 320 255 PT 11.9 SEC (12.0-15.0) L 04/16/17 16:15 INR 0.89 (0.83-1.16) 04/16/17 16:15 Physical Exam - Physical Exam General Appearance: WD/WN, alert, no apparent distress EENT: No scleral icterus (R), No scleral icterus (L) Neck: normal inspection Respiratory: No respiratory distress Cardiac/Chest: regular rate, rhythm Abdomen: non-tender, soft, No distended Skin: normal color, warm/dry Extremities: No pedal edema Neuro/Psych: no motor/sensory deficits, alert, normal mood/affect, oriented x 3 ICD10 Worksheet Patient Problems: Problems Problem Status Onset Acute blood loss anemia Acute CAD, multiple vessel Acute Chest pain Acute S/P CABG x 4 Acute ~04/19/17
[2017-04-20] MEDS ORDERED: traMADol 50 MG TAB PO PRN (09:12)
[2017-04-20] MEDS ORDERED: ACETAMINOPHEN 325 MG TAB PO PRN (09:12)
--- NOTE | 2017-04-20 09:15 | SOAPPROG ---
SOAP Progress Note Assessment/Plan: Assessment: Dysuria, mild urinary retention, ureteral stone Plan: Patient desires to keep catheter in for now due to limited mobility post op cards procedure which is reasonable. Recommend arcos catheter be removed AM of planned discharge to ensure patient can void appropriately before going home. Recommend he be continued on flomax for possible sub 1mm left ureteral stone. He is to see Dr Holly in office for outpatient cystoscopy to evalute urethral stone vs wall calcification. We will followup on patient as needed. 04/20/17 09:13 Subjective: Dysuria is minimal. No left flank pain. Limited mobility. Objective: Vital Signs Temp Pulse Resp BP Pulse Ox 36.4 C 87 20 103/66 91 L 04/20/17 04:00 04/20/17 06:00 04/20/17 06:00 04/20/17 06:00 04/20/17 06:00 Laboratory Results 04/20/17 04:10 04/20/17 04:10 04/19/17 04/20/17 04/21/17 05:59 05:59 05:59 Intake Total 840 2360 Output Total 520 2105 Balance 320 255 PT 11.9 SEC (12.0-15.0) L 04/16/17 16:15 INR 0.89 (0.83-1.16) 04/16/17 16:15 Physical Exam - Physical Exam General Appearance: alert, no apparent distress Respiratory: normal breath sounds, No respiratory distress Male Genitalia: other (catheter draining clear urine) Skin: warm/dry, other Neuro/Psych: no motor/sensory deficits, alert ICD10 Worksheet Patient Problems: Problems Problem Status Onset Acute blood loss anemia Acute CAD, multiple vessel Acute Chest pain Acute S/P CABG x 4 Acute ~04/19/17
[2017-04-20] MEDS: TAMSULOSIN HCL 0.4 MG CAP PO SCH (10:33)
[2017-04-20] MEDS: MUPIROCIN 2% 22 GM OINT NS SCH ×2 (10:34→21:08)
[2017-04-20] MEDS: PANTOPRAZOLE SODIUM 40 MG TAB PO SCH (10:34)
[2017-04-20] MEDS: TOLNAFTATE TP SCH (10:34)
[2017-04-20] MEDS: ASPIRIN EC 81 MG TAB PO SCH (10:34)
[2017-04-20] MEDS ORDERED: PHENAZOPYRIDINE HCL 200 MG TAB PO SCH (13:00)
[2017-04-20] MEDS ORDERED: PHENAZOPYRIDINE HCL 200 MG TAB PO PRN (13:33)
[2017-04-20] MEDS ORDERED: ALBUMIN 5% 250 ML BOTTLE IV ONE (20:13)
[2017-04-20] MEDS: ALBUMIN 5% 250 ML IV PRN (20:22)
[2017-04-20] MEDS ORDERED: AMIODARONE A.FIB-LOAD DOSE(ORDER 1/3) IV ONE (20:30)
[2017-04-20] MEDS ORDERED: ALBUMIN 5% 250 ML IV ONE (20:30)
[2017-04-20] MEDS ORDERED: AMIODARONE A.FIB-6HR INFSN (ORDER 2/3) IV ONE (20:30)
[2017-04-20] MEDS ORDERED: AMIODARONE HCL 100 ML IV ONE (21:00)
[2017-04-20 21:04] LABS: POTASSIUM 4.1 mEq/L (3.5-5.2)
[2017-04-20] MEDS ORDERED: FUROSEMIDE 20 MG/2 ML VIAL IVP ONE (22:30)
[2017-04-20] MEDS ORDERED: FUROSEMIDE 20 MG/2 ML VIAL ONE (22:30)
[2017-04-20] MEDS: TEMAZEPAM 15 MG CAP PO PRN (22:43)
[2017-04-21] MEDS: HYDROCODONE/APAP 5/325 TAB PO PRN ×4 (00:26→15:01)
[2017-04-21 00:44] LABS: POTASSIUM 4.2 mEq/L (3.5-5.2)
[2017-04-21] MEDS: TEMAZEPAM 15 MG CAP PO PRN ×3 (02:24→22:35)
[2017-04-21] MEDS ORDERED: AMIODARONE A.FIB-18HR INFSN (ORDER 3/3) IV ONE (02:30)
[2017-04-21 04:12] LABS: % IMMATURE GRANULYOCYTES 1.1 % (0.0-1.1); ABSOLUTE IMMATURE GRANULOCYTES 0.12 10^3/uL (0.00-0.10); ADD DIFF? NO; ADD MORPH? NO; ADD SCAN? NO; ATYPICAL LYMPHOCYTE FLAG 0 (0-99); FRAGMENT RBC FLAG 0 (0-99); HEMATOCRIT 29.7 % (40.0-51.0); HEMOGLOBIN 9.8 g/dL (13.7-17.5); LEFT SHIFT FLG 10 (0-99); LIPEMIA HEMOLYSIS FLAG 80 (0-99); MEAN CELL HEMOGLOBIN 29.7 pg (27.9-34.1); MEAN PLATELET VOLUME 10.5 fL (8.7-11.7); PLATELET CLUMPS FLAG 20 (0-99); PLATELET COUNT 107 10^3/uL (150-400); RED CELL DISTRIBUTION WIDTH 14.6 % (11.5-15.2)
[2017-04-21 04:32] LABS: ANION GAP 7 mEq/L (8-16); CARBON DIOXIDE 25 mEq/l (22-31); CHLORIDE 107 mEq/L (97-110); CREATININE 0.9 mg/dL (0.7-1.3); GLOMERULAR FILTRATION RATE > 60; GLUCOSE 131 mg/dL (70-100); POTASSIUM 4.3 mEq/L (3.5-5.2); SODIUM 139 mEq/L (134-144)
[2017-04-21] MEDS: HEPARIN 5,000 UNIT/0.5 ML SYR SC SCH ×3 (05:45→20:14)
[2017-04-21] MEDS: ceFAZolin 2 GM/DEXTROSE 100 ML IV SCH (05:45)
--- NOTE | 2017-04-21 07:30 | SOAPPROG ---
SOAP Progress Note Assessment/Plan: POD#2: CABGx4 (FISHER-circ, WIN-RCA, SVG-diag, SVG-LAD), EVH Unstable angina/severe 3VD s/p CABGx4 - FC to be removed as per urology, CT to remain to water seal d/t air leak, PWs wrapped and capped, AL out - BB/ASA/statin when appropriate - Heparin SQ/SCDs for DVT prophylaxis Acute blood loss anemia - Stable without the need for BP transfusions Dysuria, urinary retention, uretal/kidney stones - Mgmt as per urology GERD - PPI changed to BID H2 scott as per pt's request Post-op atrial fibrillation - Conversion to SR with amiodarone - Pressure not adequate for beta-scott - Thromboprophylaxis deferred d/t short duration of arrhythmia. Left atrial appendage not ligated d/t anatomy. If arrhythmia returns, will start Eliquis BID. Subjective: Pt concerned regarding eventual removal of Gómez catheter. Having hard time bringing up mucus. Objective: Vital Signs Temp Pulse Resp BP Pulse Ox 36.9 C 74 17 95/62 L 95 04/21/17 04:00 04/21/17 04:00 04/21/17 04:00 04/21/17 04:00 04/21/17 04:00 Laboratory Results 04/21/17 04:05 04/21/17 04:05 04/20/17 04/21/17 04/22/17 05:59 05:59 05:59 Intake Total 2360 1602 Output Total 2105 1495 Balance 255 107 PT 11.9 SEC (12.0-15.0) L 04/16/17 16:15 INR 0.89 (0.83-1.16) 04/16/17 16:15 Physical Exam - Physical Exam General Appearance: WD/WN, alert, no apparent distress EENT: No scleral icterus (R), No scleral icterus (L) Neck: normal inspection Respiratory: No respiratory distress Cardiac/Chest: regular rate, rhythm Abdomen: non-tender, soft, No distended Skin: normal color, warm/dry Extremities: No pedal edema Neuro/Psych: no motor/sensory deficits, alert, normal mood/affect, oriented x 3 ICD10 Worksheet Patient Problems: Problems Problem Status Onset Acute blood loss anemia Acute CAD, multiple vessel Acute Chest pain Acute S/P CABG x 4 Acute ~04/19/17
[2017-04-21] MEDS: TAMSULOSIN HCL 0.4 MG CAP PO SCH (08:09)
[2017-04-21] MEDS: ASPIRIN EC 81 MG TAB PO SCH (08:09)
[2017-04-21] MEDS: FAMOTIDINE 20 MG TAB PO SCH ×2 (08:09→17:30)
[2017-04-21] MEDS: TOLNAFTATE TP SCH (08:11)
[2017-04-21] MEDS: SENNOSIDES/DOCUSATE SODIUM TAB PO SCH ×2 (08:23→20:14)
[2017-04-21] MEDS ORDERED: CARVEDILOL 3.125 MG TAB PO SCH (18:00)
[2017-04-21] MEDS: AMIODARONE HCL 200 MG TAB PO SCH (20:13)
[2017-04-21] MEDS ORDERED: FUROSEMIDE 20 MG/2 ML VIAL IVP ONE (20:26)
[2017-04-21] MEDS ORDERED: AMIODARONE HCL 100 ML IV ONE (22:52)
[2017-04-21] MEDS ORDERED: METOPROLOL TARTRATE 25 MG TAB PO ONE (22:52)
[2017-04-21] MEDS ORDERED: POTASSIUM CL 20 MEQ TAB PO ONE (22:53)
[2017-04-21] MEDS: APIXABAN 5 MG TAB PO SCH (23:18)
[2017-04-22] MEDS ORDERED: FUROSEMIDE 40 MG/4 ML VIAL IVP ONE (00:18)
[2017-04-22] MEDS ORDERED: AMIODARONE HCL 100 ML IV ONE (04:38)
[2017-04-22] MEDS ORDERED: METOPROLOL TARTRATE 25 MG TAB PO ONE (04:42)
[2017-04-22 05:02] LABS: POTASSIUM 3.9 mEq/L (3.5-5.2)
[2017-04-22] MEDS: HYDROCODONE/APAP 5/325 TAB PO PRN ×2 (05:17→20:13)
[2017-04-22] MEDS ORDERED: METOPROLOL TARTRATE 5 MG/5 ML INJ IVP ONE (07:12)
[2017-04-22] MEDS ORDERED: POTASSIUM CL 20 MEQ TAB PO ONE (07:13)
--- NOTE | 2017-04-22 07:22 | SOAPPROG ---
SOAP Progress Note Assessment/Plan: POD#3: CABGx4 (FISHER-circ, WIN-RCA, SVG-diag, SVG-LAD), EVH Unstable angina/severe 3VD s/p CABGx4 - CT to bulb suction - BB/ASA/statin Acute blood loss anemia - Stable without the need for BP transfusions Dysuria, urinary retention, uretal/kidney stones - Gómez removed without dysuria/retention GERD - PPI changed to BID H2 scott as per pt's request Post-op atrial fibrillation - Continue amiodarone/metoprolol/Eliquis Subjective: Had palpitations over night and felt a little light-headed when standing up. Urinated all night. Pain well-controlled. Objective: Vital Signs Temp Pulse Resp BP Pulse Ox 37.1 C 152 H 16 99/70 L 94 04/22/17 04:00 04/22/17 05:13 04/22/17 04:00 04/22/17 05:13 04/22/17 04:00 Laboratory Results 04/21/17 04:05 04/22/17 04:42 04/21/17 04/22/17 04/23/17 05:59 05:59 05:59 Intake Total 1602 990 200 Output Total 1495 2720 Balance 107 -1730 200 PT 11.9 SEC (12.0-15.0) L 04/16/17 16:15 INR 0.89 (0.83-1.16) 04/16/17 16:15 Physical Exam - Physical Exam General Appearance: WD/WN, alert, no apparent distress EENT: No scleral icterus (R), No scleral icterus (L) Neck: normal inspection Respiratory: No respiratory distress Cardiac/Chest: irregularly irregular Abdomen: non-tender, soft, No distended Skin: normal color, warm/dry Extremities: pedal edema Neuro/Psych: no motor/sensory deficits, alert, normal mood/affect, oriented x 3 ICD10 Worksheet Patient Problems: Problems Problem Status Onset Acute blood loss anemia Acute CAD, multiple vessel Acute Chest pain Acute S/P CABG x 4 Acute ~04/19/17
[2017-04-22] MEDS: TAMSULOSIN HCL 0.4 MG CAP PO SCH (08:09)
[2017-04-22] MEDS: AMIODARONE HCL 200 MG TAB PO SCH ×2 (08:09→20:40)
[2017-04-22] MEDS: FAMOTIDINE 20 MG TAB PO SCH ×2 (08:09→20:40)
[2017-04-22] MEDS: ASPIRIN EC 81 MG TAB PO SCH (08:09)
[2017-04-22] MEDS: APIXABAN 5 MG TAB PO SCH ×2 (08:09→20:40)
[2017-04-22] MEDS ORDERED: ALBUMIN 5% 250 ML IV ONE (08:16)
[2017-04-22] MEDS: METOPROLOL TARTRATE 25 MG TAB PO SCH ×2 (08:55→20:40)
[2017-04-22] MEDS ORDERED: NS 500 ML IV ONE (10:06)
[2017-04-22] MEDS: SENNOSIDES/DOCUSATE SODIUM TAB PO SCH ×2 (13:22→20:39)
[2017-04-22] MEDS: TOLNAFTATE TP SCH (13:22)
[2017-04-22] MEDS: ATORVASTATIN CALCIUM 40 MG TAB PO SCH (13:26)
[2017-04-22] MEDS: ZOLPIDEM TARTRATE 5 MG TAB PO PRN (20:43)
[2017-04-23] MEDS: HYDROCODONE/APAP 5/325 TAB PO PRN ×2 (05:19→21:11)
[2017-04-23 05:46] LABS: HEMATOCRIT 25.8 % (40.0-51.0); HEMOGLOBIN 8.5 g/dL (13.7-17.5); MEAN CELL HEMOGLOBIN 29.3 pg (27.9-34.1); MEAN CELL HEMOGLOBIN CONCENTR. 32.9 g/dL (32.4-36.7); RED BLOOD CELL COUNT 2.9 10^6/uL (4.40-6.38); RED CELL DISTRIBUTION WIDTH 13.8 % (11.5-15.2)
[2017-04-23 06:02] LABS: ANION GAP 5 mEq/L (8-16); CALCIUM 8.1 mg/dL (8.5-10.4); CARBON DIOXIDE 28 mEq/l (22-31); CHLORIDE 103 mEq/L (97-110); CREATININE 0.8 mg/dL (0.7-1.3); GLOMERULAR FILTRATION RATE > 60; GLUCOSE 97 mg/dL (70-100); POTASSIUM 4.1 mEq/L (3.5-5.2); SODIUM 136 mEq/L (134-144)
[2017-04-23] MEDS ORDERED: MAGNESIUM CITRATE 300 ML BOTTLE PO ONE (07:38)
--- NOTE | 2017-04-23 07:41 | SOAPPROG ---
SOAP Progress Note Assessment/Plan: POD#4: CABGx4 (FISHER-circ, WIN-RCA, SVG-diag, SVG-LAD), EVH Unstable angina/severe 3VD s/p CABGx4 - CT to removed this morning - BB/ASA/statin Acute blood loss anemia - Stable without the need for BP transfusions Dysuria, urinary retention, uretal/kidney stones - Gómez removed without dysuria/retention GERD - PPI changed to BID H2 scott as per pt's request Post-op atrial fibrillation - Continue amiodarone/metoprolol/Eliquis Subjective: Feels much better today. Hopeful for a BM today. Objective: Vital Signs Temp Pulse Resp BP Pulse Ox 37.1 C 74 15 100/60 95 04/23/17 07:34 04/23/17 07:34 04/23/17 07:34 04/23/17 07:34 04/23/17 07:34 Laboratory Results 04/23/17 05:40 04/23/17 05:40 04/22/17 04/23/17 04/24/17 05:59 05:59 05:59 Intake Total 990 1500 Output Total 2720 1085 Balance -1730 415 PT 11.9 SEC (12.0-15.0) L 04/16/17 16:15 INR 0.89 (0.83-1.16) 04/16/17 16:15 Physical Exam - Physical Exam General Appearance: WD/WN, alert, no apparent distress EENT: No scleral icterus (R), No scleral icterus (L) Neck: normal inspection Respiratory: No respiratory distress Cardiac/Chest: regular rate, rhythm Abdomen: non-tender, soft, No distended Skin: normal color, warm/dry Extremities: pedal edema Neuro/Psych: no motor/sensory deficits, alert, normal mood/affect, oriented x 3 ICD10 Worksheet Patient Problems: Problems Problem Status Onset Acute blood loss anemia Acute CAD, multiple vessel Acute Chest pain Acute S/P CABG x 4 Acute ~04/19/17
[2017-04-23] MEDS: FAMOTIDINE 20 MG TAB PO SCH ×2 (08:03→20:26)
[2017-04-23] MEDS: SENNOSIDES/DOCUSATE SODIUM TAB PO SCH (08:04)
[2017-04-23] MEDS: ATORVASTATIN CALCIUM 40 MG TAB PO SCH (08:04)
[2017-04-23] MEDS: TAMSULOSIN HCL 0.4 MG CAP PO SCH (08:04)
[2017-04-23] MEDS: METOPROLOL TARTRATE 25 MG TAB PO SCH ×2 (08:05→21:09)
[2017-04-23] MEDS: FUROSEMIDE 40 MG TAB PO SCH (08:05)
[2017-04-23] MEDS: AMIODARONE HCL 200 MG TAB PO SCH ×2 (08:05→21:11)
[2017-04-23] MEDS: POTASSIUM CL 20 MEQ TAB PO SCH (08:06)
[2017-04-23] MEDS: APIXABAN 5 MG TAB PO SCH ×2 (08:06→21:10)
[2017-04-23] MEDS: ASPIRIN EC 81 MG TAB PO SCH (08:06)
[2017-04-23] MEDS: TOLNAFTATE TP SCH ×2 (08:07→17:42)
[2017-04-23] MEDS ORDERED: SENNOSIDES/DOCUSATE SODIUM TAB PO PRN (21:00)
[2017-04-23] MEDS: ZOLPIDEM TARTRATE 5 MG TAB PO PRN (21:10)
--- NOTE | 2017-04-24 07:57 | SOAPPROG ---
SOAP Progress Note Assessment/Plan: POD#5: CABGx4 (FISHER-circ, WIN-RCA, SVG-diag, SVG-LAD), EVH Unstable angina/severe 3VD s/p CABGx4 - BB/ASA/statin - Eliquis for DVT prophylaxis Acute blood loss anemia - Stable without the need for BP transfusions Dysuria, urinary retention, uretal/kidney stones - Gómez removed without dysuria/retention GERD - PPI changed to BID H2 scott as per pt's request Post-op atrial fibrillation - Continue amiodarone/metoprolol/Eliquis Subjective: Having a hard time pushing himself. OK with going to SNF tomorrow. Objective: Vital Signs Temp Pulse Resp BP Pulse Ox 37.2 C 76 14 109/67 94 04/24/17 04:00 04/24/17 04:00 04/24/17 04:00 04/24/17 04:00 04/24/17 04:00 Laboratory Results 04/23/17 05:40 04/23/17 05:40 04/23/17 04/24/17 04/25/17 05:59 05:59 05:59 Intake Total 1500 900 Output Total 1085 900 Balance 415 0 PT 11.9 SEC (12.0-15.0) L 04/16/17 16:15 INR 0.89 (0.83-1.16) 04/16/17 16:15 Physical Exam - Physical Exam General Appearance: WD/WN, alert, no apparent distress EENT: No scleral icterus (R), No scleral icterus (L) Neck: normal inspection Respiratory: No respiratory distress Cardiac/Chest: regular rate, rhythm Abdomen: non-tender, soft, No distended Skin: normal color, warm/dry Extremities: pedal edema Neuro/Psych: no motor/sensory deficits, alert, normal mood/affect, oriented x 3 ICD10 Worksheet Patient Problems: Problems Problem Status Onset Acute blood loss anemia Acute CAD, multiple vessel Acute Chest pain Acute Chronic Disease Mgmt/Transitional Care Acute S/P CABG x 4 Acute ~04/19/17
[2017-04-24] MEDS: HYDROCODONE/APAP 5/325 TAB PO PRN ×3 (08:00→20:26)
[2017-04-24] MEDS: FUROSEMIDE 40 MG TAB PO SCH (08:00)
[2017-04-24] MEDS: POTASSIUM CL 20 MEQ TAB PO SCH (08:01)
[2017-04-24] MEDS: TAMSULOSIN HCL 0.4 MG CAP PO SCH (08:01)
[2017-04-24] MEDS: FAMOTIDINE 20 MG TAB PO SCH ×2 (08:01→20:27)
[2017-04-24] MEDS: METOPROLOL TARTRATE 25 MG TAB PO SCH ×2 (08:01→20:27)
[2017-04-24] MEDS: ATORVASTATIN CALCIUM 40 MG TAB PO SCH (08:01)
[2017-04-24] MEDS: APIXABAN 5 MG TAB PO SCH ×2 (08:01→20:28)
[2017-04-24] MEDS: ASPIRIN EC 81 MG TAB PO SCH (08:01)
[2017-04-24] MEDS: AMIODARONE HCL 200 MG TAB PO SCH ×2 (08:05→20:28)
[2017-04-24] MEDS: TOLNAFTATE TP SCH (17:17)
[2017-04-24] MEDS: ZOLPIDEM TARTRATE 5 MG TAB PO PRN (20:27)
[2017-04-25 06:33] VITALS: PULSE 82
[2017-04-25] MEDS: HYDROCODONE/APAP 5/325 TAB PO PRN ×2 (07:28→12:17)
[2017-04-25] MEDS: FAMOTIDINE 20 MG TAB PO SCH (07:29)
[2017-04-25] MEDS: ASPIRIN EC 81 MG TAB PO SCH (07:30)
[2017-04-25] MEDS: FUROSEMIDE 40 MG TAB PO SCH (07:30)
[2017-04-25] MEDS: TAMSULOSIN HCL 0.4 MG CAP PO SCH (07:30)
[2017-04-25] MEDS: AMIODARONE HCL 200 MG TAB PO SCH (07:30)
[2017-04-25] MEDS: METOPROLOL TARTRATE 25 MG TAB PO SCH (07:30)
[2017-04-25] MEDS: POTASSIUM CL 20 MEQ TAB PO SCH (07:30)
[2017-04-25] MEDS: APIXABAN 5 MG TAB PO SCH (07:30)
[2017-04-25] MEDS: TOLNAFTATE TP SCH (07:31)
[2017-04-25] MEDS: ATORVASTATIN CALCIUM 40 MG TAB PO SCH (07:31)
--- NOTE | 2017-04-25 07:58 | SOAPPROG ---
SOAP Progress Note Assessment/Plan: POD#6: CABGx4 (FISHER-circ, WIN-RCA, SVG-diag, SVG-LAD), EVH Unstable angina/severe 3VD s/p CABGx4 - BB/ASA/statin - Eliquis for DVT prophylaxis Acute blood loss anemia - Stable without the need for BP transfusions Dysuria, urinary retention, uretal/kidney stones - Gómez removed without dysuria/retention GERD - PPI changed to BID H2 scott as per pt's request Post-op atrial fibrillation - Continue amiodarone/metoprolol/Eliquis Disposition - Plan for SNF today Subjective: Slight harder to breathe this morning. Having epigastric burning. Objective: Vital Signs Temp Pulse Resp BP Pulse Ox 36.9 C 82 16 125/74 H 92 04/25/17 04:00 04/25/17 07:41 04/25/17 07:41 04/25/17 07:41 04/25/17 07:41 Laboratory Results 04/23/17 05:40 04/23/17 05:40 04/24/17 04/25/17 04/26/17 05:59 05:59 05:59 Intake Total 900 620 250 Output Total 900 700 325 Balance 0 -80 -75 PT 11.9 SEC (12.0-15.0) L 04/16/17 16:15 INR 0.89 (0.83-1.16) 04/16/17 16:15 Physical Exam - Physical Exam General Appearance: WD/WN, alert, no apparent distress EENT: No scleral icterus (R), No scleral icterus (L) Neck: normal inspection Respiratory: respiratory distress (slight) Cardiac/Chest: regular rate, rhythm Abdomen: non-tender, soft, No distended Extremities: pedal edema Neuro/Psych: no motor/sensory deficits, alert, normal mood/affect, oriented x 3 ICD10 Worksheet Patient Problems: Problems Problem Status Onset Acute blood loss anemia Acute CAD, multiple vessel Acute Chest pain Acute Chronic Disease Mgmt/Transitional Care Acute S/P CABG x 4 Acute ~04/19/17
[2017-04-25] MEDS ORDERED: FUROSEMIDE 40 MG/4 ML VIAL IVP ONE (07:59)
--- NOTE | 2017-04-25 11:50 | PDIAF ---
- Diagnosis Diagnosis: s/p CABG Code Status: Full Code - Medication Management Discharge Medications: Medications to Continue on Transfer Acetaminophen [Tylenol 325mg (*)] 325 - 650 mg PO Q6 PRN 04/16/17 [Last Taken 09:00] Diclofenac Sodium 1% [Voltaren Gel (*)] 1 magan TP DAILY 04/16/17 [Last Taken ] Herbals/Supplements -Info Only 1 ea PO DAILY 04/16/17 [Last Taken 04/16/17] Omeprazole [Prilosec 20 mg] 20 mg PO DAILY18 04/16/17 [Last Taken 04/15/17] Tolnaftate [Formula 3] 15 ml TP DAILY 04/16/17 [Last Taken Unknown] Trolamine Salicylate [Aspercreme] 1 magan TP DAILY 04/16/17 [Last Taken 04/16/17] Amiodarone HCl [Pacerone (*)] 200 mg PO BID #0 tab 04/25/17 [Last Taken Unknown] Apixaban [Eliquis] 5 mg PO BID #0 tab 04/25/17 [Last Taken Unknown] Aspirin EC [Aspirin EC 81 mg (*)] 81 mg PO DAILY #0 tab 04/25/17 [Last Taken Unknown] Atorvastatin Calcium [Lipitor 40 mg (*)] 40 mg PO DAILY #0 tab 04/25/17 [Last Taken Unknown] Furosemide [Lasix 40 MG (*)] 40 mg PO DAILY #0 tab 04/25/17 [Last Taken Unknown] Hydrocodone/APAP 5/325 [[place] 5/325 (*)] 1 - 2 tab PO Q4HRS PRN #0 tab 04/25/17 [Last Taken Unknown] Metoprolol Tartrate [Lopressor 25 mg (*)] 25 mg PO BID #0 tab 04/25/17 [Last Taken Unknown] Potassium Cl [Klor-Con 20 meq (*)] 20 meq PO DAILY #0 tab 04/25/17 [Last Taken Unknown] Tamsulosin HCl [Flomax 0.4 MG (*)] 0.4 mg PO DAILY #0 cap 04/25/17 [Last Taken Unknown] Zolpidem Tartrate [Ambien 5MG (*)] 5 mg PO HS PRN #0 tab 04/25/17 [Last Taken Unknown] traMADol [Ultram 50 mg (*)] 50 - 100 mg PO Q4HRS PRN #0 tab 04/25/17 [Last Taken Unknown] Discharge Medications: Refer to the Discharge Home Medication list for PRN reason. PICC Care - Routine: N/A - Orders Services needed: Registered Nurse, Master Traffic Analysis Technician, Physical Therapy, Occupational Therapy Oxygen: 3L [place] continuous Diet Recommendation: cardiac -low fat low salt, fluid restriction (use comment for amount) (2 Liters) Diet Texture: Regular Texture Diet Weigh Patient: daily Gómez: Not applicable Wound Care Instructions: Cleanse wounds daily with soap and water. Avoid water immersion (pool, hot tub, bath) until scabs off. Ok to leave all wounds open to air. Avoid creams or ointments until scabs off. Activity/Weight Bearing Restrictions: Sternal precautions x 4 weeks. Avoid lifting > 10lbs with an outstretched arm. Avoid push/pull activities. No driving for 2 weeks or until cleared by surgery. Elevate low legs at rest. Avoid prolonged standing or dangling. Additional: Call [employer] for overnight weight gain > 2lbs, weekly gain > 5lbs or worsening leg swelling. Call [employer] for resting heart rate > 120 or < 60 OR for systolic blood pressure consistently < 90 or > 140. Target oxygen saturation > 89%. - Labs/Radiology Imaging Orders: Obtain a CXR at [facility] prior to appt on 05/01. Use handwritten Rx for order. - Follow Up Care Current Providers and Referrals: Ty Emmanuel DO [Doctor of Osteopathy] - NONE *PRIMARY CARE P,. [Unknown] - As per Instructions Ty Montague MD [Medical Doctor] -
[2017-04-25 11:54] VITALS: BP 107/78; RESP 20; TEMP 97.9; O2SAT 96
--- NOTE | 2017-04-25 11:57 | PDDCSUM ---
Discharge Summary Discharge Summary: ADMISSION DATE: 04/17/17 DISCHARGE DATE: 04/25/17 ADMISSION DX: 1. Unstable angina 2. Coronary artery disease DISCHARGE DX: 1. Unstable angina 2. Coronary artery disease 3. Dysuria 4. Urinary retention 5. Acute blood loss anemia 6. Post-op paroxysmal atrial fibrillation PROCEDURES 04/19/17, Ty Emmanuel: 1. CABGx4 (FISHER-PLCX, WIN-RCA, sequential [id number]), [facility] HOSPITAL COURSE BY PROBLEM LIST 1. Unstable angina with CAD s/p CABG x4 - well-tolerated post-operative course. Beta-scott, aspirin, and statin prescribed. 2. Post-operative atrial fibrillation - conversion to sinus rhythm with beta- scott and amiodarone. Eliquis prescribed for thromboprophylaxis. 3. Dysuria with urinary retention - catheter placed prior to surgery and urologic w/u revealed kidney and urethral stones. Catheter removed post- operatively without problems. Flomax continued on discharge. CONDITION Good DISPOSITION Home, self-care ACTIVITY Pt was instructed on sternal precautions, activity limitations, and which problems to call Located Within [facility] with. Please see Discharge Plan and Interagency Discharge Form in chart for specifics. D/C MEDICATIONS New 1. Amiodarone HCl [Pacerone (*)] 200 mg PO BID 2. Apixaban [Eliquis] 5 mg PO BID 3. Aspirin EC [Aspirin EC 81 mg (*)] 81 mg PO DAILY 4. Atorvastatin Calcium [Lipitor 40 mg (*)] 40 mg PO DAILY 5. Furosemide [Lasix 40 MG (*)] 40 mg PO DAILY 6. Hydrocodone/APAP 5/325 [[place] 5/325 (*)] 1 - 2 tab PO Q4HRS PRN 7. Metoprolol Tartrate [Lopressor 25 mg (*)] 25 mg PO BID 8. Potassium Cl [Klor-Con 20 meq (*)] 20 meq PO DAILY 9. Tamsulosin HCl [Flomax 0.4 MG (*)] 0.4 mg PO DAILY 10. Zolpidem Tartrate [Ambien 5MG (*)] 5 mg PO HS PRN 11. traMADol [Ultram 50 mg (*)] 50 - 100 mg PO Q4HRS PRN Continue: 1. Acetaminophen [Tylenol 325mg (*)] 325 - 650 mg PO Q6 PRN 2. Diclofenac Sodium 1% [Voltaren Gel (*)] 1 magan TP DAILY 3. Herbals/Supplements -Info Only 1 ea PO DAILY 4. Omeprazole [Prilosec 20 mg] 20 mg PO DAILY18 5. Tolnaftate [Formula 3] 15 ml TP DAILY 6. Trolamine Salicylate [Aspercreme] 1 magan TP DAILY Discontinue: 1. Naproxen PENDING STUDIES/LABS 1. CXR prior to surgical follow-up F/U APPOINTMENTS 1. Ty Emmanuel - 05/01/17, 12:00 PM
== END 2017-04-25 12:54 | DRG 234 ==
LOC: F2W 18:35 → OBSVTOIN 04-17 17:59 → F2N 04-19 09:42 → F2W 04-21 17:05
PROVIDERS: ADMIT Family Medicine; ATTEND Family Medicine
PROC: 4A023N7 Measurement of Cardiac Sampling and Pressure, Left Heart, Percutaneous Approach (ICD-10-PCS; 2017-04-17)
PROC: B2151ZZ Fluoroscopy of Left Heart using Low Osmolar Contrast (ICD-10-PCS; 2017-04-17)
PROC: B2111ZZ Fluoroscopy of Multiple Coronary Arteries using Low Osmolar Contrast (ICD-10-PCS; 2017-04-17)
PROC: 021209W Bypass Coronary Artery, Three Arteries from Aorta with Autologous Venous Tissue, Open Approach (ICD-10-PCS; principal; 2017-04-19 10:45)
PROC: 02100Z9 Bypass Coronary Artery, One Artery from Left Internal Mammary, Open Approach (ICD-10-PCS; principal; 2017-04-19 10:45)
PROC: 5A1221Z Performance of Cardiac Output, Continuous (ICD-10-PCS; principal; 2017-04-19 10:45)
PROC: 06BQ4ZZ Excision of Left Saphenous Vein, Percutaneous Endoscopic Approach (ICD-10-PCS; principal; 2017-04-19 10:45)
DX: I25.110 Atherosclerotic heart disease of native coronary artery with unstable angina pectoris (principal); D62 Acute posthemorrhagic anemia; I48.0 Paroxysmal atrial fibrillation; N20.0 Calculus of kidney; N21.1 Calculus in urethra; N41.1 Chronic prostatitis; K21.9 Gastro-esophageal reflux disease without esophagitis; E78.5 Hyperlipidemia, unspecified; Z82.49 Family history of ischemic heart disease and other diseases of the circulatory system
CPT/HCPCS: 82947-QW; 97116-GP; 97162-GP; 97165-GO; 97530-GO; 97530-GP; 97535-GO; C1760; G0378; G8978-GP-CK; G8979-GP-CI; G8980-GP-CJ; G8987-GO-CJ; G8988-GO-CI; J0153; J0282; J0690; J1100; J1265; J1644; J1815; J1940; J2001; J2150; J2250; J2260; J2370; J2405; J2440; J2704; J2720; J2765; J2930; J3010; J7060; P9041; Q9967

== ENCOUNTER → 2017-04-16 | Outpatient (CLI) | payer OTHER, MEDICARE | LOC: BMCIMAGING 14:52 | PROVIDERS: ATTEND Family Medicine | DX: R42 Dizziness and giddiness (principal); M48.10 Ankylosing hyperostosis [Forestier], site unspecified ==

== ENCOUNTER → 2017-05-01 | Outpatient (CLI) | payer OTHER, MEDICARE | LOC: FIMAGING 10:44 | PROVIDERS: ATTEND Thoracic Surgery (Cardiothoracic Vascular Surgery) | DX: Z95.1 Presence of aortocoronary bypass graft (principal); J90 Pleural effusion, not elsewhere classified; J98.11 Atelectasis ==

== ENCOUNTER → 2017-05-15 | Outpatient (CLI) | payer OTHER, MEDICARE | LOC: FIMAGING 09:35 | PROVIDERS: ATTEND Thoracic Surgery (Cardiothoracic Vascular Surgery) | DX: Z09 Encounter for follow-up examination after completed treatment for conditions other than malignant neoplasm (principal); Z95.1 Presence of aortocoronary bypass graft ==

== ENCOUNTER 2017-05-17 13:32 | Inpatient (IN) | payer OTHER, MEDICARE ==
[2017-05-17 15:01] LABS: % IMMATURE GRANULYOCYTES 0.7 % (0.0-1.1); ADD DIFF? NO; ADD MORPH? NO; ADD SCAN? NO; ATYPICAL LYMPHOCYTE FLAG 0 (0-99); FRAGMENT RBC FLAG 0 (0-99); HEMOGLOBIN 11.2 g/dL (13.7-17.5); LEFT SHIFT FLG 20 (0-99); LIPEMIA HEMOLYSIS FLAG 80 (0-99); MEAN CELL HEMOGLOBIN 28.6 pg (27.9-34.1); MEAN CELL HEMOGLOBIN CONCENTR. 32.9 g/dL (32.4-36.7); MEAN PLATELET VOLUME 9.9 fL (8.7-11.7); PLATELET CLUMPS FLAG 0 (0-99); PLATELET COUNT 217 10^3/uL (150-400); RED BLOOD CELL COUNT 3.91 10^6/uL (4.40-6.38); RED CELL DISTRIBUTION WIDTH 13.9 % (11.5-15.2)
[2017-05-17 15:20] LABS: ALANINE AMINOTRANSFERASE 35 IU/L (21-72); ALBUMIN 3.7 g/dL (3.5-5.0); ALKALINE PHOSPHATASE 112 IU/L (38-126); ANION GAP 14 mEq/L (8-16); ASPARTATE AMINOTRANSFERASE 23 IU/L (17-59); BILIRUBIN,TOTAL 1.2 mg/dL (0.1-1.4); CALCIUM 9.2 mg/dL (8.5-10.4); CARBON DIOXIDE 22 mEq/l (22-31); CHLORIDE 98 mEq/L (97-110); GLOMERULAR FILTRATION RATE > 60; GLUCOSE 104 mg/dL (70-100); POTASSIUM 3.8 mEq/L (3.5-5.2); SODIUM 134 mEq/L (134-144); TOTAL PROTEIN 6.5 g/dL (6.3-8.2)
[2017-05-17] MEDS ORDERED: ACETAMINOPHEN 325 MG TAB PO PRN (15:27)
[2017-05-17] MEDS ORDERED: NS 1,000 ML IV ONE (15:27)
[2017-05-17] MEDS ORDERED: ONDANSETRON 4 MG/2 ML VIAL IVP PRN (15:27)
[2017-05-17] MEDS ORDERED: ONDANSETRON DISINTEGRATING 4 MG TAB PO PRN (15:27)
[2017-05-17] MEDS: NS 1,000 ML IV SCH (16:00)
--- NOTE | 2017-05-17 16:06 | GHP ---
[f rep st] HISTORY AND PHYSICAL DATE OF ADMISSION: 05/17/2017 CHIEF COMPLAINT: Dysuria. HISTORY OF PRESENT ILLNESS: This is a 66-year-old male who had 4-vessel CABG done in early April. With problems with urination, patient required a Gómez at that time. He then underwent followup an d had a cystoscopy 3 days ago. The day afterward, he developed dysuria. He went and saw his urolog ist today. The patient looked septic and was sent to the emergency department. Patient admitted to chills with some fever. He feels drowsy. No nausea or vomiting. He had significant dysuria and u rinary frequency. He is also complaining of right-sided chest pain, which has been going on and off . It is tender and worse with certain types of movements. REVIEW OF SYSTEMS: A 10-point review of systems was obtained and otherwise was negative. PAST MEDICAL HISTORY: 1. CABG. 2. Kidney stones. 3. Foot surgery. MEDICATIONS: Reviewed. SOCIAL HISTORY: No smoking. Had been an active runner prior. Is . FAMILY HISTORY: Reviewed and noncontributory to current problem. PHYSICAL EXAM: VITAL SIGNS: Afebrile. Blood pressure is 124/75. Heart rate is 90. Oxygen satura tion is 98% on room air. GENERAL: The patient is well-developed, no apparent distress. HEENT: No nicteric sclerae. Extraocular movements intact. Moist mucous membranes. NECK: Supple. No thyrom egaly. LUNGS: Good effort. Clear to auscultation bilaterally. CARDIOVASCULAR: Regular rate and rhythm. No murmurs or gallops. CHEST: There is point tenderness on the right side. ABDOMEN: Pos itive bowel sounds. Soft, nontender, nondistended. EXTREMITIES: No clubbing or cyanosis noted. S KIN: Without rash. Warm, dry, intact. NEUROLOGIC: Alert and oriented x3. Moving all 4 extremiti es. PSYCHIATRIC: Normal mood and affect. LABS: White count is 14, hemoglobin , platelets are 217. Lactate 1.8. Chemistries alena l. UA is reviewed from urologist's office. It showed leukocyte esterase, white blood cells and nit rite. ASSESSMENT: This is a 66-year-old male presenting with urinary tract infection. PLAN: 1. Urinary tract infection. We will treat with IV ceftriaxone. Lactate is normal and vital signs are stable. 2. Recent coronary artery bypass graft. Continue medications. 3. History of postoperative atrial fibrillation. We will continue his Eliquis and amiodarone. /[id number]/MODL
[2017-05-17 16:20] LABS: COLOR YELLOW; LEUKOCYTE ESTERASE,URINE 2+ (NEGATIVE); NITRITE,URINE POSITIVE (NEGATIVE)
[2017-05-17 16:43] LABS: WBC,URINE 50-182 /hpf (0-3)
[2017-05-17] MEDS: APIXABAN 5 MG TAB PO SCH (19:53)
[2017-05-17] MEDS: HYDROCODONE/APAP 5/325 TAB PO PRN (21:38)
[2017-05-17] MEDS: LORazepam 0.5 MG TAB PO PRN (21:39)
[2017-05-17] MEDS: METOPROLOL TARTRATE 25 MG TAB PO SCH (22:17)
[2017-05-18] MEDS: NS 1,000 ML IV SCH ×2 (00:01→08:00)
[2017-05-18] MEDS: HYDROCODONE/APAP 5/325 TAB PO PRN ×3 (01:42→21:23)
[2017-05-18 05:03] LABS: % IMMATURE GRANULYOCYTES 0.6 % (0.0-1.1); ABSOLUTE IMMATURE GRANULOCYTES 0.06 10^3/uL (0.00-0.10); ADD DIFF? NO; ADD MORPH? NO; ADD SCAN? NO; ATYPICAL LYMPHOCYTE FLAG 0 (0-99); FRAGMENT RBC FLAG 0 (0-99); HEMATOCRIT 29.1 % (40.0-51.0); HEMOGLOBIN 9.3 g/dL (13.7-17.5); LEFT SHIFT FLG 10 (0-99); LIPEMIA HEMOLYSIS FLAG 80 (0-99); MEAN CELL HEMOGLOBIN 28.4 pg (27.9-34.1); MEAN CELL VOLUME 88.7 fL (81.5-99.8); MEAN PLATELET VOLUME 10.1 fL (8.7-11.7); PLATELET CLUMPS FLAG 0 (0-99); PLATELET COUNT 179 10^3/uL (150-400); RED BLOOD CELL COUNT 3.28 10^6/uL (4.40-6.38); RED CELL DISTRIBUTION WIDTH 14.1 % (11.5-15.2)
[2017-05-18 05:14] LABS: ANION GAP 6 mEq/L (8-16); CARBON DIOXIDE 22 mEq/l (22-31); CHLORIDE 107 mEq/L (97-110); CREATININE 0.8 mg/dL (0.7-1.3); GLOMERULAR FILTRATION RATE > 60; GLUCOSE 101 mg/dL (70-100); POTASSIUM 3.9 mEq/L (3.5-5.2); SODIUM 135 mEq/L (134-144)
[2017-05-18] MEDS: ASPIRIN EC 81 MG TAB PO SCH (08:01)
[2017-05-18] MEDS: ATORVASTATIN CALCIUM 40 MG TAB PO SCH (08:01)
[2017-05-18] MEDS: SENNOSIDES/DOCUSATE SODIUM TAB PO SCH (08:01)
[2017-05-18] MEDS: APIXABAN 5 MG TAB PO SCH ×2 (08:01→21:23)
[2017-05-18] MEDS: TROLAMINE SALICYLATE 85 GM CRTUBE TP SCH ×2 (08:01→08:07)
[2017-05-18] MEDS: AMIODARONE HCL 200 MG TAB PO SCH (08:01)
[2017-05-18] MEDS: TOLNAFTATE TP SCH (08:06)
[2017-05-18] MEDS: METOPROLOL TARTRATE 25 MG TAB PO SCH ×2 (09:53→21:26)
--- NOTE | 2017-05-18 10:44 | HOSPPROG ---
Hospitalist Progress Note Assessment/Plan: * UTI * had cystoscopy by danyel sunday * cont IV ceftriaxone * did get dose of ancef at urologist office so don't know if our culture will grow anything but there is culture in [facility] from office *recent CABG *h/o postop afib * eliquis * hold metoprolol since bp is a little soft now *dvt proph - eliquis Subjective: feels better but still having dysuria and fatigue Objective: Vital Signs Temp Pulse Resp BP Pulse Ox 36.7 C 73 16 97/65 L 95 05/18/17 07:32 05/18/17 07:32 05/18/17 07:32 05/18/17 07:32 05/18/17 07:32 Laboratory Results 05/18/17 04:12 05/18/17 04:12 05/17/17 05/18/17 05/19/17 05:59 05:59 05:59 Intake Total 1500 Output Total 800 Balance 700 - Physical Exam Constitutional: no apparent distress, appears nourished, not in pain Eyes: anicteric sclera, EOMI Ears, Nose, Mouth, Throat: moist mucous membranes Cardiovascular: regular rate and rhythym, no murmur, rub, or gallop, systolic murmur Respiratory: no respiratory distress, no rales or rhonchi, clear to auscultation Gastrointestinal: normoactive bowel sounds, soft, non-tender abdomen, no palpable masses Skin: warm Neurologic: AAOx3 Psychiatric: interacting appropriately, not anxious, not encephalopathic, thought process linear ICD10 Worksheet Patient Problems: Problems Problem Status Onset Acute blood loss anemia Acute CAD, multiple vessel Acute Chest pain Acute Chronic Disease Mgmt/Transitional Care Acute S/P CABG x 4 Acute ~04/19/17
--- NOTE | 2017-05-18 14:34 | GCON ---
[f rep st] CONSULTATION DATE OF CONSULTATION: 05/18/2017 REASON FOR CONSULT: Urinary tract infection with fever. HISTORY OF PRESENT ILLNESS: This is a pleasant 66-year-old male who is well known to our office. [place] presented to see me in the office yesterday with concerns of painful urination, citing severe dysu magnus. He also had chills, weakness, fatigue, and a general lack of appetite. Symptoms were occurrin g on Sunday following a cystoscopy he had in the office on Sunday. reports he had taken his t emperature at home and did not have a fever. However, patient was febrile on exam in the office. After discussion with the hospitalist, was admitted to [facility] for IV antibiotics and care. He has a hi story pertinent for that cystoscopy on Sunday as noted, which found mild bilobar hypertrophy in the small median lobe of the prostate. Otherwise, no concerns on that exam. PAST MEDICAL HISTORY: Includes recent coronary artery bypass surgery in early April, kidney stones , foot surgery. MEDICATIONS: Please refer to the MAR system. SOCIAL HISTORY: Denies smoking. . History of being an active runner. FAMILY HISTORY: Noncontributory. REVIEW OF SYSTEMS: 10-point review of systems negative except as mentioned in HPI. PHYSICAL EXAM: VITAL SIGNS: Blood pressure currently 102/65, heart rate 82, respirations 22, O2 96 on 1 mL/minute, temperature 36.8. GENERAL: This is a well-developed, well-nourished male who appe ars somewhat ill. HEENT: Normocephalic, atraumatic. Extraocular movement intact. NECK: Supple. No lymphadenopathy. Trachea midline. RESPIRATORY: No accessory respiratory muscle use. The federico ent is on oxygen. CARDIAC: Regular rate and rhythm. No lower extremity edema. No obvious JVD. GI : Abdomen was soft, nondistended, nontender to palpation. No hepatosplenomegaly. Normal bowel rahel nds. No palpable masses. : No CVA tenderness. Patient did have a mild urge to urinate with pal pation of bladder. INTEGUMENT: Patient was somewhat pale but no obvious rashes or lesions. MUSCULO SKELETAL: He was examined while lying supine in bed, not moving extremities. NEURO: Patient is al ert, oriented. Affect appropriate to situation. LABS: His white blood cell count has decreased to 10.32 from 14.17 on admission. Hemoglobin 9.3, h ematocrit 29.1, platelets 179. Blood gas: Lactic acid was 1.8. Chemistry: Sodium 135, potassium 3.9, chloride 107, carbon dioxide 22, anion gap 6, BUN 18, creatinine 0.8, glucose 101, calcium 8.0. His urine on presentation was positive for blood, nitrates, and leukocytes. Pending urine culture and blood cultures. ASSESSMENT: Urinary tract infection. Appreciate hospitalist care with IV antibiotics and hydration for this patient. While he reports feeling somewhat better today than yesterday, he is still overa ll feeling poorly. Not sure he has the energy to get out of bed for a walk. I agree with the hospi talist's recommendation to probably keep another night for observation. Will be happy to follow em mccormick in the care of this patient if any more attention is needed from Urology. /[id number]/MODL
--- NOTE | 2017-05-18 17:43 | SOAPPROG ---
SOAP Progress Note Assessment/Plan: Assessment: Febrile GNR UTI - improved today but still very weak. Plan: 1. Switch to appropriate oral antibiotic once culture results are completed and continue for at least 10 days following discharge. In meantime, continue Rocephin. 2. Begin Pyridium for severe dysuria -- Rx. on chart to continue after discharge. 3. Restart Flomax. No concerns from my standpoint w/ his current BP readings. Subjective: Feels somewhat better today. Currently trying to eat some dinner. Objective: Vital Signs Temp Pulse Resp BP Pulse Ox 36.4 C 81 18 108/81 H 95 05/18/17 15:29 05/18/17 15:29 05/18/17 15:29 05/18/17 15:29 05/18/17 15:29 Laboratory Results 05/18/17 04:12 05/18/17 04:12 05/17/17 05/18/17 05/19/17 05:59 05:59 05:59 Intake Total 1500 Output Total 800 Balance 700 ICD10 Worksheet Patient Problems: Problems Problem Status Onset Acute blood loss anemia Acute CAD, multiple vessel Acute Chest pain Acute Chronic Disease [facility]/Transitional Care Acute S/P CABG x 4 Acute ~04/19/17
[2017-05-18] MEDS: PHENAZOPYRIDINE HCL 200 MG TAB PO SCH ×2 (18:15→21:22)
[2017-05-18] MEDS: TAMSULOSIN HCL 0.4 MG CAP PO SCH (18:15)
[2017-05-18] MEDS: LORazepam 0.5 MG TAB PO PRN (21:23)
[2017-05-19 05:05] LABS: % IMMATURE GRANULYOCYTES 0.5 % (0.0-1.1); ABSOLUTE IMMATURE GRANULOCYTES 0.03 10^3/uL (0.00-0.10); ADD DIFF? NO; ADD MORPH? NO; ADD SCAN? NO; ATYPICAL LYMPHOCYTE FLAG 10 (0-99); FRAGMENT RBC FLAG 0 (0-99); HEMATOCRIT 30.3 % (40.0-51.0); HEMOGLOBIN 9.8 g/dL (13.7-17.5); LEFT SHIFT FLG 0 (0-99); LIPEMIA HEMOLYSIS FLAG 80 (0-99); MEAN CELL HEMOGLOBIN 28.4 pg (27.9-34.1); MEAN CELL HEMOGLOBIN CONCENTR. 32.3 g/dL (32.4-36.7); MEAN CELL VOLUME 87.8 fL (81.5-99.8); MEAN PLATELET VOLUME 10.1 fL (8.7-11.7); PLATELET CLUMPS FLAG 0 (0-99); PLATELET COUNT 211 10^3/uL (150-400); RED BLOOD CELL COUNT 3.45 10^6/uL (4.40-6.38); RED CELL DISTRIBUTION WIDTH 13.9 % (11.5-15.2)
[2017-05-19 05:16] LABS: ANION GAP 7 mEq/L (8-16); CALCIUM 8.4 mg/dL (8.5-10.4); CARBON DIOXIDE 22 mEq/l (22-31); CHLORIDE 106 mEq/L (97-110); CREATININE 0.8 mg/dL (0.7-1.3); GLOMERULAR FILTRATION RATE > 60; GLUCOSE 86 mg/dL (70-100); POTASSIUM 3.8 mEq/L (3.5-5.2); SODIUM 135 mEq/L (134-144)
[2017-05-19] MEDS: METOPROLOL TARTRATE 25 MG TAB PO SCH (08:13)
[2017-05-19] MEDS: APIXABAN 5 MG TAB PO SCH (08:14)
[2017-05-19] MEDS: TAMSULOSIN HCL 0.4 MG CAP PO SCH (08:14)
[2017-05-19] MEDS: SENNOSIDES/DOCUSATE SODIUM TAB PO SCH (08:14)
[2017-05-19] MEDS: AMIODARONE HCL 200 MG TAB PO SCH (08:14)
[2017-05-19] MEDS: PHENAZOPYRIDINE HCL 200 MG TAB PO SCH (08:15)
[2017-05-19] MEDS: ASPIRIN EC 81 MG TAB PO SCH (08:15)
[2017-05-19] MEDS: ATORVASTATIN CALCIUM 40 MG TAB PO SCH (08:15)
[2017-05-19 08:59] VITALS: RESP 12
[2017-05-19] MEDS: TOLNAFTATE TP SCH (10:04)
[2017-05-19] MEDS: TROLAMINE SALICYLATE 85 GM CRTUBE TP SCH (10:04)
[2017-05-19 12:17] VITALS: BP 121/78; PULSE 79; TEMP 98.1; O2SAT 95
--- NOTE | 2017-05-19 13:12 | PDDCSUM ---
Discharge Summary Discharge Summary: DISCHARGE DIAGNOSES: -acute complicated urinary tract infection -recent coronary artery bypass surgery, stable and recovering well CONSULTANTS: Dr. Kareem Holly [facility] COURSE SUMMARY: This patient who had a recent bypass surgery which included use of a Gómez catheter, had some urinary retention upon removal of Gómez at the time of his surgery. He was given some Flomax and went home doing well. He follow up with Dr. Holly and had a cystoscopy which was uncomplicated. However following this he developed fevers and urinary frequency and dysuria. He has diagnosed at this time with a Klebsiella urinary tract infection, complicated by decreased appetite, anorexia, will weakness with difficulty ambulating, and borderline hypotension. He was treated with antibiotics here at and has responded quite nicely to that. He has also been getting some Flomax and Pyridium here. At this time he still having some burning but his urinary frequency and dysuria have gotten better. His appetite is approaching normal. He is up and walking much better in the hallway. He is not had fevers here. PENDING TEST RESULTS: None MEDICATION CHANGES: Addition of Pyridium, Flomax, and 5 more days of antibiotic with oral daily Levaquin 750 mg FOLLOW-UP PLAN: With Dr. Linda Soto in 1 week Greater than 35 minutes bedside and care coordination time today
--- NOTE | 2017-05-19 14:13 | PDIAF ---
- Diagnosis Diagnosis: resumption of prior care; UTI Code Status: Full Code - Medication Management Discharge Medications: Medications to Continue on Transfer Diclofenac Sodium 1% [Voltaren Gel (*)] 1 magan TP DAILY 04/16/17 [Last Taken ] Herbals/Supplements -Info Only 1 ea PO DAILY 04/16/17 [Last Taken 04/16/17] Tolnaftate [Formula 3] 15 ml TP DAILY 04/16/17 [Last Taken Unknown] Trolamine Salicylate [Aspercreme] 1 magan TP DAILY 04/16/17 [Last Taken 04/16/17] Apixaban [Eliquis] 5 mg PO BID #0 tab 04/25/17 [Last Taken Unknown] Aspirin EC [Aspirin EC 81 mg (*)] 81 mg PO DAILY #0 tab 04/25/17 [Last Taken Unknown] Atorvastatin Calcium [Lipitor 40 mg (*)] 40 mg PO DAILY #0 tab 04/25/17 [Last Taken Unknown] Hydrocodone/APAP 5/325 [[place] 5/325 (*)] 1 - 2 tab PO Q4HRS PRN #0 tab 04/25/17 [Last Taken Unknown] Amiodarone HCl [Pacerone (*)] 200 mg PO DAILY 05/17/17 [Last Taken Unknown] Furosemide [Lasix 20 MG (*)] 20 mg PO DAILY 05/17/17 [Last Taken Unknown] LORazepam [Ativan (*)] 0.25 - 0.5 mg PO Q8H PRN 05/17/17 [Last Taken Unknown] Metoprolol Tartrate [Lopressor 25 mg (*)] 12.5 mg PO BID 05/17/17 [Last Taken Unknown] Potassium Chloride [Klor-Con 10] 10 meq PO DAILY 05/17/17 [Last Taken Unknown] Sennosides/Docusate Sodium [SENEXON-S TABLET] 1 each PO DAILY 05/17/17 [Last Taken Unknown] Phenazopyridine HCl [Pyridium] 200 mg PO TID #20 tab 05/18/17 [Last Taken Unknown] Tamsulosin HCl [Flomax 0.4 MG (*)] 0.4 mg PO DAILY #30 cap 05/19/17 [Last Taken Unknown] levOFLOXACIN [levAQUIN (*)] 750 mg PO DAILY #6 tab 05/19/17 [Last Taken Unknown] Discharge Medications: Refer to the Discharge Home Medication list for PRN reason. - Orders Services needed: Home Care, Registered Nurse, Physical Therapy Home Care Face to Face: I certify that this patient was under my care and that I had the required [id number] encounter meeting the encounter requirements on the discharge day. My findings support the fact that the patient is homebound as defined in CMS Chapter 7 Medicare Benefits Manual 30.1.1, The condition of the patient is such that there exists a normal inability to leave home and consequently, leaving home would require a considerable and taxing effort. Diet Recommendation: cardiac -low fat low salt Diet Texture: Regular Texture Diet - Follow Up Care Current Providers and Referrals: Modesta Lee MD [Primary Care Provider] -
== END 2017-05-19 14:47 | disposition home health service (06) | DRG 690 ==
LOC: F3E 13:42 → OBSVTOIN 05-18 15:07
PROVIDERS: ADMIT Internal Medicine; ATTEND Internal Medicine
DX: N39.0 Urinary tract infection, site not specified (principal); B96.1 Klebsiella pneumoniae [K. pneumoniae] as the cause of diseases classified elsewhere; Z95.1 Presence of aortocoronary bypass graft
CPT/HCPCS: 97165-GO; G0378; G8987-GO-CI; G8989-GO-CH; J0696

== ENCOUNTER 2017-05-21 10:07 | Emergency (ER) | payer OTHER, MEDICARE ==
--- NOTE | 2017-05-21 10:16 | CPEKG ---
Heart Rate: 85 RR Interval: 706 P-R Interval: 124 QRSD Interval: 92 QT Interval: 408 QTC Interval: 486 P [place]: 54 QRS [place]: 77 T Wave [place]: 59 EKG Severity - ABNORMAL ECG - EKG Impression: SINUS RHYTHM EKG Impression: VENTRICULAR PREMATURE COMPLEX EKG Impression: LOW VOLTAGE IN FRONTAL LEADS EKG Impression: BORDERLINE T ABNORMALITIES, ANT-LAT LEADS EKG Impression: BORDERLINE PROLONGED QT INTERVAL Electronically Signed By: Mason Khanna 21-May-2017 13:20:33
--- NOTE | 2017-05-21 10:31 | EDPHY ---
H & P Stated Complaint: Irreg,rapid ht rate by hx;CABG ~1mo ago Time Seen by Provider: 05/21/17 10:31 - Personal History Current Tetanus Diphtheria and Acellular Pertussis (TDAP): Yes - Medical/Surgical History Hx Asthma: No Hx Chronic Respiratory Disease: No Hx Diabetes: No Hx Cardiac Disease: Yes Hx Renal Disease: No Hx Cirrhosis: No Hx Alcoholism: No Hx HIV/AIDS: No Hx Splenectomy or Spleen Trauma: No Other PMH: back issues. GERD. CABG 03/2017 - Social History Smoking Status: Never smoked Constitutional: Initial Vital Signs Heart Rate 84 05/21/17 10:07 Respiratory Rate 18 05/21/17 10:07 Blood Pressure 134/86 H 05/21/17 10:07 O2 Sat (%) 93 05/21/17 10:07 O2 Delivery Mode Room Air Allergies/Adverse Reactions: No Known Allergies Allergy (Verified 05/21/17 10:14) Home Medications: Medication Instructions Recorded Diclofenac Sodium 1% [Voltaren Gel 1 magan TP DAILY PRN 04/16/17 (*)] Herbals/Supplements -Info Only 1 ea PO DAILY 04/16/17 Tolnaftate [Formula 3] 15 ml TP DAILY 04/16/17 Trolamine Salicylate [Aspercreme] 1 magan TP DAILY 04/16/17 Apixaban [Eliquis] 5 mg PO BID #0 tab 04/25/17 Aspirin EC [Aspirin EC 81 mg (*)] 81 mg PO DAILY #0 tab 04/25/17 Atorvastatin Calcium [Lipitor 40 40 mg PO DAILY #0 tab 04/25/17 mg (*)] Amiodarone HCl [Pacerone (*)] 200 mg PO DAILY 05/17/17 Furosemide [Lasix 20 MG (*)] 20 mg PO DAILY 05/17/17 LORazepam [Ativan (*)] 0.25 - 0.5 mg PO Q8H PRN 05/17/17 Metoprolol Tartrate [Lopressor 25 12.5 mg PO BID 05/17/17 mg (*)] Potassium Chloride [Klor-Con 10] 10 meq PO DAILY 05/17/17 Phenazopyridine HCl [Pyridium] 200 mg PO TID #20 tab 05/18/17 Tamsulosin HCl [Flomax 0.4 MG (*)] 0.4 mg PO DAILY #30 cap 05/19/17 levOFLOXACIN [levAQUIN (*)] 750 mg PO DAILY #6 tab 05/19/17 Sennosides/Docusate Sodium 1 each PO DAILY 05/21/17 [SENEXON-S TABLET] Medical Decision Making - Diagnostics Imaging: Discussed imaging studies w/ fisher scallop Radiologist, I viewed and interpreted images myself ED Course/Re-evaluation: CHIEF COMPLAINT: Rapid heart rate post CABG HISTORY OF PRESENT ILLNESS: The patient is an anticoagulated 66 y/o male who presents with intermittent rapid heart rate for the last month after a CABGx4 on 04/19/17. His medical history includes CAD, post-op atrial fibrillation, and GERD. He had a two-day admission on 05/17/17 for urosepsis, but had been feeling better for the past several days. This morning he became lightheaded while going to the bathroom. He was unable to make breakfast without needing to sit down and take a break. His symptoms were alleviated while lying down. Denies abdominal pain, fever, paresthesias, weakness, or other symptoms. The patient has a scheduled cardiology follow up appointment in 3 days. REVIEW OF SYSTEMS: A 10 point review of systems was performed and is negative with the exception of the elements mentioned in the history of present illness. PHYSICAL EXAM: HR, BP, O2 Sat, RR. Temp noted General Appearance: Alert, well hydrated, appropriate, and non-toxic appearing. Head: Atraumatic without scalp tenderness or obvious injury Eyes: Pupils equal, round, reactive to light and accommodation, EOMI, no trauma , no injection. Ears: Clear bilaterally, no perforation, normal landmarks Nose: Atraumatic, no rhinorrhea, clear. Throat: Mucus membranes moist. Neck: Supple, nontender, no lymphadenopathy. Respiratory: No retractions, no distress, no wheezes, and no accessory muscle use. Lungs are clear to auscultation bilaterally. Cardiovascular: Regular rate and rhythm, no murmurs, rubs, or gallops. Good capillary refill all extremities. Gastrointestinal: Abdomen is soft, nontender, non-distended, no masses, no rebound, no guarding, no peritoneal signs. Musculoskeletal: Normal active ROM of all extremities, atraumatic. Neurological: Alert, appropriate, and interactive. Non-focal neuro. Skin: No rashes, good turgor, no nodules on palpation. Past medical history: post-op atrial fibrillation - Eliquis, GERD, CAD, low back pain Past surgical history: CABGx4 04/19/[address] Emmanuel; foot surgery; cataract surgery; kidney stone removal Family history: Denies Social history: at bedside, retired, lives in [place]. Oncology Social Worker: Ty Montague Prior medical records reviewed including admission 04/17/17 for unstable angina and CABG. DIAGNOSTICS/PROCEDURES/CRITICAL CARE TIME: EKG: The 12 lead EKG was interpreted by myself. He has a sinus rhythm, with a rate of 85. There are no ischemic changes, but there is a slight difference from his EKG on 04/19/17. See hard copy and/or "tracemaster" electronic copy for interpretation. Chest X-ray: No acute process DIFFERENTIAL DIAGNOSIS: The differential diagnosis for the patient's chest pain included but was not limited to myocardial ischemia, pulmonary embolus, chest wall pain, pleural inflammation, and pulmonary infectious causes. MEDICAL DECISION MAKING: The patient is a 66 y/o male who has intermittent tachycardia. He had a CABG performed on 04/19/17. His symptoms are alleviated while lying down and exacerbated while moving. Plan on EKG, X-ray, and labs to rule out cardiac etiology. Consulted with Dr. Santos, cardiology. He will assess patient in the ED and discuss options for admission vs. outpatient follow up. Reassessed patient and discussed imaging and laboratory results. Dr. Santos is comfortable with patient following up as an outpatient with his glory hole tender, Dr. Montague, in 3 days to get a monitor. He is comfortable with this plan. Strict return precautions given. - Data Points Laboratory Results: Laboratory Results 05/21/17 10:30 05/21/17 10:30 Departure - Departure Disposition: Home, Routine, Self-Care Clinical Impression: Rapid heart rate, Near syncope Condition: Good Instructions: Near Syncope (ED), Tachycardia (ED) Additional Instructions: 1. Keep your appointment with Dr. Montague on , they will discuss a monitoring rhythm. 2. Continue taking medications as prescribed. 3. Return to the ED for chest pain, shortness of breath, fainting, or worsening of condition. Referrals: Ty Montague MD [Medical Doctor] - Modesta Lee MD [Primary Care Provider] - As per Instructions Report Scribed for: Mason Khanna Report Scribed by: Jazzmine Lira Date of Report: 05/21/17 Time of Report: 11:40
[2017-05-21 10:53] LABS: % IMMATURE GRANULYOCYTES 0.9 % (0.0-1.1); ABSOLUTE IMMATURE GRANULOCYTES 0.06 10^3/uL (0.00-0.10); ADD DIFF? NO; ADD MORPH? NO; ADD SCAN? YES; FRAGMENT RBC FLAG 0 (0-99); HEMATOCRIT 39.1 % (40.0-51.0); HEMOGLOBIN 12.8 g/dL (13.7-17.5); LEFT SHIFT FLG 0 (0-99); LIPEMIA HEMOLYSIS FLAG 80 (0-99); MEAN CELL HEMOGLOBIN CONCENTR. 32.7 g/dL (32.4-36.7); MEAN CELL VOLUME 85.6 fL (81.5-99.8); MEAN PLATELET VOLUME 9.7 fL (8.7-11.7); PLATELET CLUMPS FLAG 0 (0-99); PLATELET COUNT 319 10^3/uL (150-400); RED BLOOD CELL COUNT 4.57 10^6/uL (4.40-6.38); RED CELL DISTRIBUTION WIDTH 13.8 % (11.5-15.2)
[2017-05-21 10:56] LABS: ATYPICAL LYMPHOCYTE FLAG 150 (0-99)
[2017-05-21 11:08] LABS: ANION GAP 17 mEq/L (8-16); CALCIUM 9.7 mg/dL (8.5-10.4); CARBON DIOXIDE 21 mEq/l (22-31); CHLORIDE 101 mEq/L (97-110); GLOMERULAR FILTRATION RATE > 60; GLUCOSE 107 mg/dL (70-100); MAGNESIUM 1.8 mg/dL (1.6-2.3); POTASSIUM 3.6 mEq/L (3.5-5.2); SODIUM 139 mEq/L (134-144)
[2017-05-21 11:17] LABS: TROPONIN I < 0.012 ng/mL (0.000-0.034)
[2017-05-21 11:25] LABS: SCAN NEGATIVE
[2017-05-21 11:31] LABS: INR 1.46 (0.83-1.16); PROTIME(PATIENT) 17.7 SEC (12.0-15.0)
[2017-05-21 11:32] LABS: APTT 35.4 SEC (23.0-38.0)
[2017-05-21 11:49] VITALS: BP 128/77; PULSE 79; RESP 16; TEMP 98.2; O2SAT 98
== END 2017-05-21 11:49 | disposition home or self-care (01) ==
LOC: UNDOADMOB 10:52
DX: R00.0 Tachycardia, unspecified (principal); R55 Syncope and collapse; I25.810 Atherosclerosis of coronary artery bypass graft(s) without angina pectoris; Z79.01 Long term (current) use of anticoagulants; Z79.82 Long term (current) use of aspirin

== ENCOUNTER → 2017-06-27 | Outpatient (CLI) | payer OTHER, MEDICARE | LOC: FIMAGING 12:26 | PROVIDERS: ATTEND Thoracic Surgery (Cardiothoracic Vascular Surgery) | DX: Z95.1 Presence of aortocoronary bypass graft (principal) ==

== ENCOUNTER 2017-08-06 08:52 | Emergency (ER) | payer OTHER, MEDICARE ==
[2017-08-06 09:01] VITALS: TEMP 97.7
--- NOTE | 2017-08-06 09:39 | CPEKG ---
Heart Rate: 63 RR Interval: 952 P-R Interval: 128 QRSD Interval: 94 QT Interval: 456 QTC Interval: 467 P [place]: 57 QRS [place]: 62 T Wave [place]: 70 EKG Severity - BORDERLINE ECG - EKG Impression: SINUS RHYTHM EKG Impression: LOW VOLTAGE THROUGHOUT EKG Impression: BORDERLINE T ABNORMALITIES, ANT-LAT LEADS Electronically Signed By: Dara Marie 06-Aug-2017 15:28:08
--- NOTE | 2017-08-06 09:58 | EDPHY ---
H & P Stated Complaint: "Knot" in R calf x 3 days;vertigo x 3 days Source: Patient Exam Limitations: No limitations - Personal History Current Tetanus Diphtheria and Acellular Pertussis (TDAP): Unsure - Medical/Surgical History Hx Asthma: No Hx Chronic Respiratory Disease: No Hx Diabetes: No Hx Cardiac Disease: Yes Hx Renal Disease: No Hx Cirrhosis: No Hx Alcoholism: No Hx HIV/AIDS: No Hx Splenectomy or Spleen Trauma: No Other PMH: back issues. GERD. CABG 03/2017 - Social History Smoking Status: Never smoked Time Seen by Provider: 08/06/17 09:57 HPI/ROS: HPI: This is a 66-year-old male presents with Chief Complaint: "Knot" in R calf x 3 days;vertigo x 3 days Location: Right calf Quality: knot Duration: 3 days Signs and Symptoms:+ lightheaded, no headache, no neck stiffness, no fever, no shortness of breath, no palpitations, no chest pain Timing: Sudden, intermittent Severity: [id number] Context: Patient had a quadruple bypass in March 2017 currently taking aspirin and statin. He reports that he walks his dog daily. But no recent long distance trips. On Sunday he noted a right not in his calf but had not had any injury. Denies any swelling or pain. Today he noticed some cramping in his left calf. He he reports that he has been drinking fluids appropriately. He describes some lightheadedness when he lays down at night that last for few minutes, denies the room spinning, headache. After further prompting patient does report some nasal congestion, denies runny nose/tinnitus/cough/fever/nausea /vomiting/photophobia/noise sensitivity. Modifying Factors: Comment: ROS: see HPI Constitutional: No fever, no chills, no weight loss Eyes: No blurred vision Respiratory: No shortness of breath, no cough Cardiovascular: No chest pain Gastrointestinal: No nausea, no vomiting, no diarrhea Genitourinary: No dysuria Extremities: No myalgias Neurologic: No weakness, no numbness Skin: No rashes Hematologic: No bruising, no bleeding MEDICAL/SURGICAL/SOCIAL HISTORY: Medical history: back issues, GERD, CABG 03/2017 Surgical history: Denies Social history: retired. CONSTITUTIONAL: awake and alert, no obvious distress HEENT: Atraumatic and normocephalic, PERRL, EOMI. Tympanic membranes clear. Nares have pale mucosa with green drainage. + bilateral maxillary tenderness with palpation. Oropharynx clear, no exudate and moist pink mucosa. Airway patent. No lymphadenopathy. No meningismus. Cardiovascular: Normal S1/S2, regular rate, regular rhythm, without murmur rub or gallop. PULMONARY/CHEST: Symmetrical and nontender. Clear to auscultation bilaterally. Good air movement. No accessory muscle usage. ABDOMEN: Soft, nondistended, nontender, no rebound, no guarding, no peritoneal signs, no masses or organomegaly. No CVAT. EXTREMITIES: 2/2 pulses, bilateral lower extremities are equal in size; negative calf tenderness. Negative Homans sign. Negative palpable cord. Negative varicose veins. strength 5/5, no deformities, no clubbing, no cyanosis or edema. NEUROLOGICAL: no focal neuro deficits. GCS 15. SKIN: Warm and dry, no erythema. no rash. Good capillary refill. (Molly Christian) Constitutional: Initial Vital Signs Temperature (C) 36.5 C 08/06/17 08:56 Heart Rate 79 08/06/17 08:56 Respiratory Rate 18 08/06/17 08:56 Blood Pressure 125/84 H 08/06/17 08:56 O2 Sat (%) 97 08/06/17 08:56 O2 Delivery Mode Room Air Allergies/Adverse Reactions: No Known Allergies Allergy (Verified 08/06/17 09:01) Home Medications: Medication Instructions Recorded Aspirin [Aspirin 81mg (*)] 81 mg PO DAILY 08/06/17 Atorvastatin Calcium [Lipitor 40 40 mg PO 08/06/17 mg (*)] Azithromycin [Zithromax] 250 mg PO DAILY #6 tab 08/06/17 Fluticasone Nasal [Flonase Nasal 2 sprays NASAL DAILY #1 mdi 08/06/17 [place] (RX)] Omeprazole [Prilosec 20 mg] 20 mg PO DAILY 08/06/17 Medical Decision Making Procedures: 12 lead EKG: Indication: Dizziness Rhythm: Normal sinus rhythm, rate of 63 beats per minute [place]: Normal Intervals: Normal QRS: Normal ST segments: Normal T-waves: Flattened INTERPRETATION: No acute ischemic changes The 12 lead EKG was interpreted by myself and with attending. (Molly Christian) ED Course/Re-evaluation: EKG, labs, bilateral lower extremity ultrasound, head CT scan ordered 1022: Labs reviewed and no significant anemia, electrolyte imbalance, acute kidney injury. ESR within normal limits. [address] Tidwell who advised no deep venous thrombosis noted. 1130: Called by Dr. Tidwell who advised that head CT scan shows no acute intracranial process, did shows mild chronic inflammatory changes in the maxillary and ethmoid sinuses. Will place on Flonase and Zithromax It appears that the calf cramping may be related to the statin; will defer to PCP and Cardiology to determine next step (Molly Christian) The patient was evaluated and managed by the physician nutritional assistant. I have reviewed this chart and I agree with the findings and plan of care as documented , as indicated by my signature. I am the secondary supervising physician. ( Dara Marie) Differential Diagnosis: Differential diagnosis includes but is not limited to statin side effect, electrolyte imbalance, deep venous thrombosis, sinus disease, dehydration. (Molly Christian) - Data Points Laboratory Results: Laboratory Results 08/06/17 09:15 08/06/17 09:15 Departure - Departure Disposition: Home, Routine, Self-Care Clinical Impression: Calf cramp, Myalgia, Sinusitis nasal Condition: Good Instructions: Sinusitis (ED) Additional Instructions: Your labs and ultrasound scan are unremarkable today for electrolyte imbalance, anemia, acute kidney injury, deep venous thrombosis. It appears that your calf cramping and knot may be related to your statin medication. Please follow up with your primary care provider and your umbrella mender, Dr. Montague, to discuss medication side effect. Head CT scan today does not show any acute intracranial process but does show sinus disease. Please use Flonase daily and complete year Zithromax antibiotic course. This could contribute to your dizziness. Referrals: Courtney Alvarez MD [Primary Care Provider] - As per Instructions Ty Montague MD [Medical Doctor] - As per Instructions Prescriptions: Azithromycin [Zithromax] 250 mg PO DAILY #6 tab Fluticasone Nasal [Flonase Nasal [place] (RX)] 2 sprays NASAL DAILY #1 mdi
[2017-08-06 10:10] LABS: % IMMATURE GRANULYOCYTES 0.4 % (0.0-1.1); ABSOLUTE IMMATURE GRANULOCYTES 0.02 10^3/uL (0.00-0.10); ADD DIFF? NO; ADD MORPH? NO; ADD SCAN? NO; ATYPICAL LYMPHOCYTE FLAG 10 (0-99); FRAGMENT RBC FLAG 0 (0-99); HEMATOCRIT 47.2 % (40.0-51.0); HEMOGLOBIN 15.6 g/dL (13.7-17.5); LEFT SHIFT FLG 0 (0-99); LIPEMIA HEMOLYSIS FLAG 80 (0-99); MEAN CELL HEMOGLOBIN 27.6 pg (27.9-34.1); MEAN CELL HEMOGLOBIN CONCENTR. 33.1 g/dL (32.4-36.7); MEAN CELL VOLUME 83.5 fL (81.5-99.8); MEAN PLATELET VOLUME 10.9 fL (8.7-11.7); PLATELET CLUMPS FLAG 0 (0-99); PLATELET COUNT 226 10^3/uL (150-400); RED BLOOD CELL COUNT 5.65 10^6/uL (4.40-6.38); RED CELL DISTRIBUTION WIDTH 15.9 % (11.5-15.2)
[2017-08-06 10:16] LABS: ALANINE AMINOTRANSFERASE 37 IU/L (21-72); ALBUMIN 4.2 g/dL (3.5-5.0); ALKALINE PHOSPHATASE 85 IU/L (38-126); ANION GAP 11 mEq/L (8-16); ASPARTATE AMINOTRANSFERASE 23 IU/L (17-59); BILIRUBIN,TOTAL 0.3 mg/dL (0.1-1.4); BILIRUBIN-UNCONJUGATED 0.3 mg/dL (0.0-1.1); CALCIUM 9.3 mg/dL (8.5-10.4); CARBON DIOXIDE 25 mEq/l (22-31); CHLORIDE 105 mEq/L (97-110); GLOMERULAR FILTRATION RATE > 60; GLUCOSE 83 mg/dL (70-100); POTASSIUM 3.8 mEq/L (3.5-5.2); SODIUM 141 mEq/L (134-144); TOTAL PROTEIN 6.9 g/dL (6.3-8.2)
[2017-08-06 11:10] LABS: SEDIMENTATION RATE 4 MM/HR (0-20)
[2017-08-06 11:50] VITALS: BP 123/82; PULSE 63; RESP 16; O2SAT 97
== END 2017-08-06 11:58 | disposition home or self-care (01) ==
DX: J01.00 Acute maxillary sinusitis, unspecified (principal); M79.1 Myalgia; R25.2 Cramp and spasm; Z79.82 Long term (current) use of aspirin; Z95.1 Presence of aortocoronary bypass graft

== ENCOUNTER 2017-08-24 10:59 | Emergency (ER) | payer OTHER, MEDICARE ==
[2017-08-24 11:04] VITALS: RESP 16
[2017-08-24 11:05] VITALS: O2SAT 97
--- NOTE | 2017-08-24 11:20 | CPEKG ---
Heart Rate: 74 RR Interval: 811 P-R Interval: 120 QRSD Interval: 96 QT Interval: 412 QTC Interval: 457 P [place]: 74 QRS [place]: 97 T Wave [place]: 84 EKG Severity - BORDERLINE ECG - EKG Impression: SINUS RHYTHM EKG Impression: RIGHT AXIS DEVIATION EKG Impression: BORDERLINE INFERIOR Q WAVES EKG Impression: BORDERLINE T ABNORMALITIES, ANT-LAT LEADS Electronically Signed By: Dara Marie 24-Aug-2017 16:25:05
--- NOTE | 2017-08-24 11:34 | EDPHY ---
H & P Stated Complaint: dizziness continues after completing antbx sinusitus, Dr Peguero sent 4 poss MRI Time Seen by Provider: 08/24/17 11:13 HPI/ROS: CHIEF COMPLAINT: Persistent dizziness HISTORY OF PRESENT ILLNESS: This patient is a 66 year old male with history of CABG 04/17/17 complaining of dizziness and disequilibrium ongoing since that procedure. He underwent three weeks of cardiac rehabilitation and his balance has improved, but he continues to experience dizziness in the evenings, particularly with changes in position or turning his head side to side. He describes this as a lightheadedness rather than a spinning sensation. He was evaluated here 08/06/17 for similar symptoms and received a head CT, LLE US. He was diagnosed with chronic sinusitis at that time and prescribed antibiotics and nasal spray. His dizziness has not resolved. Today, he was evaluated by the PA for Dr. Stewart, neurologist. He states he was referred to the emergency department for further evaluation and possible imaging studies. He has no new complaints at this time. REVIEW OF SYSTEMS: A 10 point review of systems was performed and is negative with the exception of the elements mentioned in the history of present illness. Past medical history: 1. CAD 2. GERD 3. Low back pain Past surgical history: 1. CABG 2. Kidney stone removal 3. Orthopedic surgery (foot surgery) 4. Cataract surgery Family history: Noncontributory Social history: . Retired. Lives in [place]. Adult Physical: General Appearance: Alert, no acute distress. Eyes: Pupils equal and round, no conjunctival injection, no discharge. ENT, Mouth: Mucous membranes are moist, no oropharyngeal erythema or edema. Neck: No lymphadenopathy, supple. No carotid bruits. Respiratory: Lungs are clear to auscultation; no wheezes, rales, or rhonchi. Cardiovascular: Regular rate and rhythm; no murmur, rub, or gallop. Gastrointestinal: Abdomen is soft and non tender, no masses or organomegaly, bowel sounds normal. Skin: Warm and dry, no rashes, normal color. Back: Nontender to palpation over the thoracolumbar spine. Extremities: No lower extremity edema, no calf tenderness or swelling. Neurological: Alert and oriented. Moving all four extremities easily and equally. Cranial nerves II through XII are examined and are intact (visual acuity not tested). Strength is 5 over 5 bilaterally with testing of all major motor groups. Sensation is intact to light touch over all 4 extremities. Deep tendon reflexes are 2+ in the biceps and knees bilaterally. Gait is normal. [id number] is performed accurately. Psychiatric: Normal affect. - Personal History Current Tetanus/Diphtheria Vaccine: Unsure Current Tetanus Diphtheria and Acellular Pertussis (TDAP): Unsure - Medical/Surgical History Hx Asthma: No Hx Chronic Respiratory Disease: No Hx Diabetes: No Hx Cardiac Disease: Yes Hx Renal Disease: No Hx Cirrhosis: No Hx Alcoholism: No Hx HIV/AIDS: No Hx Splenectomy or Spleen Trauma: No Other PMH: back issues. GERD. CABG 03/2017 - Social History Smoking Status: Never smoked Constitutional: Initial Vital Signs Temperature (C) 36.5 C 08/24/17 11:00 Heart Rate 83 08/24/17 11:00 Respiratory Rate 16 08/24/17 11:00 Blood Pressure 118/77 08/24/17 11:00 O2 Sat (%) 97 08/24/17 11:00 O2 Delivery Mode Room Air Allergies/Adverse Reactions: No Known Allergies Allergy (Verified 08/06/17 09:01) Home Medications: Medication Instructions Recorded Aspirin [Aspirin 81mg (*)] 81 mg PO DAILY 08/06/17 Atorvastatin Calcium [Lipitor 40 40 mg PO 08/06/17 mg (*)] Azithromycin [Zithromax] 250 mg PO DAILY #6 tab 08/06/17 Fluticasone Nasal [Flonase Nasal 2 sprays NASAL DAILY #1 mdi 08/06/17 [place] (RX)] Omeprazole [Prilosec 20 mg] 20 mg PO DAILY 08/06/17 Medical Decision Making ED Course/Re-evaluation: 66 year old male s/p CABG x4 on 04/17/17 presents with dizziness and disequilibrium ongoing since that procedure, particularly noticeable in the evenings. He is neurologically intact. He has received head CT, bilateral lower extremity ultrasounds. Plan to consult with Dr. Stewart for further information regarding this patient. The patient had bilateral carotid ultrasounds performed prior to his heart surgery in March. His carotids were clean at that time. 12:[address] Stewart, neurologist. At this point in time he is not recommending additional imaging such as MRI/MRA. Patient is comfortable with this. He came to the emergency department because he understood that he should do so after being evaluated by the mid level in Dr. Stewart' office. This seems to be a bit of a misunderstanding. It seems that carotid ultrasound was being recommended, but these were performed in March. Based upon my history taking, physical examination, and telephone discussion with Dr. Stewart, I do not feel that emergency evaluation is needed at this time. Should there be any acute change, he might require additional testing. I discussed the danger signs that should prompt him to be seen in the emergency department. Plan to discharge home in good condition. He will proceed with outpatient followup. I am giving him information and for ENT follow-up, should he desire. We discussed outpatient resources available for treatment of vertigo/dizziness /disequilibrium. Return precautions discussed. Differential Diagnosis: Dizziness including but not limited to peripheral and central causes of vertigo , orthostatic causes including dehydration, and blood loss. Departure - Departure Disposition: Home, Routine, Self-Care Clinical Impression: Dizziness, Disequilibrium Condition: Good Instructions: Dizziness (ED) Additional Instructions: 1. Continue to follow up with your primary care provider or neurologist as directed. 2. Return to the emergency department for worsening dizziness, fainting, severe headache, numbness or weakness in your extremities, or other worsening of condition. 3. We have given you a referral to an ear, nose, and throat specialist as well. Follow up with ENT for further evaluation of dizziness. Referrals: Courtney Alvarez MD [Primary Care Provider] - As per Instructions Nadir Stewart MD [Medical Doctor] - As per Instructions John Rick MD [Medical Doctor] - As per Instructions Report Scribed for: Dara Marie Report Scribed by: Carmella Elizabeth Date of Report: 08/24/17 Time of Report: 11:46 Physician Review and Approval Statement: 08/26/17 08:48 Portions of this note were transcribed by the medical unit secretary. I, Dr. Dara Marie, personally performed the history, physical exam, and medical decision- making; and confirmed the accuracy of the information in the transcribed note.
[2017-08-24 12:25] VITALS: BP 119/82; PULSE 69
[2017-08-24 13:06] VITALS: TEMP 96.8
== END 2017-08-24 13:15 | disposition home or self-care (01) ==
DX: R42 Dizziness and giddiness (principal); R41.0 Disorientation, unspecified; I25.810 Atherosclerosis of coronary artery bypass graft(s) without angina pectoris; Z79.82 Long term (current) use of aspirin

== ENCOUNTER → 2018-04-04 | Outpatient (CLI) | payer OTHER, MEDICARE | LOC: BHFA 15:30 | PROVIDERS: ATTEND Internal Medicine Interventional Cardiology | DX: R00.0 Tachycardia, unspecified (principal) ==

== ENCOUNTER → 2018-06-24 | Outpatient (CLI) | payer OTHER, MEDICARE ==
[~2018-06-24] MED LIST: GADOBUTROL 10 ML VIAL IVP ONE
== END ==
LOC: FIMAGING 15:09
PROVIDERS: ATTEND Neurological Surgery
DX: D32.0 Benign neoplasm of cerebral meninges (principal)
CPT/HCPCS: 70553; A9585

== ENCOUNTER 2019-01-14 18:39 | Emergency (ER) | payer MEDICARE, OTHER ==
--- NOTE | 2019-01-14 18:56 | EDPHY ---
H & P Stated Complaint: RLQ abd pain, dizziness, n/v Time Seen by Provider: 01/14/19 18:55 HPI/ROS: CHIEF COMPLAINT: Abdominal pain and vomiting HISTORY OF PRESENT ILLNESS: The patient presents the ED with several days of increasing abdominal pain and vomiting. The patient's symptoms began over the weekend any initially attributed to eating bad chili. Patient is continued to have ongoing symptoms which have been episodic. He is having associated symptoms of generalized weakness with some of the bouts of abdominal pain. Patient denies any chest pain or shortness of breath. He does have a history of coronary artery disease. He is status post CABG in the past. The patient also has a history of some chronic back pain and uses Advil for this condition. The patient denies any melena or hematemesis. The patient reports his pain is localized to the right lower quadrant. He denies additional acute complaints. REVIEW OF SYSTEMS: A comprehensive 10 point review of systems is otherwise negative aside from elements mentioned in the history of present illness. Source: Patient Exam Limitations: No limitations - Personal History Current Tetanus/Diphtheria Vaccine: Unsure Current Tetanus Diphtheria and Acellular Pertussis (TDAP): Unsure - Medical/Surgical History Hx Asthma: No Hx Chronic Respiratory Disease: No Hx Diabetes: No Hx Cardiac Disease: Yes Hx Renal Disease: No Hx Cirrhosis: No Hx Alcoholism: No Hx HIV/AIDS: No Hx Splenectomy or Spleen Trauma: No Other PMH: Kidney stones. back issues. GERD. CABG 03/2017 - Social History Smoking Status: Never smoked - Physical Exam Exam: General Appearance: Alert, no distress Eyes: Pupils equal and round no pallor or injection ENT, Mouth: Mucous membranes moist Respiratory: There are no retractions, lungs are clear to auscultation Cardiovascular: Regular rate and rhythm Gastrointestinal: Tenderness to palpation with rebound in slight guarding noted to the right lower quadrant, no peritoneal signs, normal bowel sounds. Back: No CVA tenderness Neurological: 5/5 strength noted all 4 extremities Skin: Warm and dry, no rashes Musculoskeletal: Neck is supple nontender Extremities: symmetrical, full range of motion Psychiatric: Patient is oriented X 3, there is no agitation Constitutional: Initial Vital Signs Temperature (C) 36.5 C 01/14/19 18:50 Heart Rate 74 01/14/19 18:50 Respiratory Rate 18 01/14/19 18:50 Blood Pressure 129/87 H 01/14/19 18:50 O2 Sat (%) 96 01/14/19 18:50 O2 Delivery Mode Room Air Allergies/Adverse Reactions: No Known Allergies Allergy (Verified 04/25/18 18:30) Home Medications: Medication Instructions Recorded Aspirin [Aspirin 81mg (*)] 81 mg PO DAILY 08/06/17 Atorvastatin Calcium [Lipitor 40 40 mg PO 08/06/17 mg (*)] Omeprazole [Prilosec 20 mg] 20 mg PO DAILY 08/06/17 Ondansetron Odt [Zofran Odt] 4 mg PO Q4PRN PRN #20 tab 01/14/19 Medical Decision Making - Diagnostics Imaging Results: Imaging Impressions Abdomen CT 01/14/19 19:34 Impression: 1. Acute versus chronic inflammation of the gallbladder. No cholelithiasis or biliary obstruction. 2. Normal appendix. 3. Sigmoid diverticulosis. No acute diverticulitis, free fluid, or abscess. 4. Left nephrolithiasis. No obstructing ureteral calculi. Findings discussed with Emergency Department physician, El Lipscomb M.D. , on January 14, 2019 at 2030. ED Course/Re-evaluation: Patient presents the ED with intermittent right-sided abdominal pain and vomiting. The symptoms have been occurring over the past several days. As I evaluated the patient initially he seemed to be most tender in his right lower quadrant. His laboratory testing is unremarkable. Given his tenderness she was taken for CT scan of the abdomen which demonstrates a normal appearing appendix but did demonstrate some possible phlegm a alayna changes around the gallbladder. I re-evaluated the patient at 9:00 p.m.. Patient's liver function tests are normal. The patient has no right upper quadrant tenderness. I doubt a right upper quadrant ultrasound will be useful. I do believe he is likely having symptoms consistent with a mild enteritis. Plan at this point time will be discharged home with instructions to use NSAIDs and Zofran. The patient is given customary aftercare instructions and return precautions. The patient has had several days of intermittent right lower quadrant pain. He has a normal appearing appendix on his CT scan. He has no leukocytosis or fever. I doubt early appendicitis based upon his symptoms. I do feel it is reasonable to have him observe his symptoms over the next 12-24 hours. He will be discharged home with customary abdominal pain return precautions. I re-evaluated the patient at 9:45 p.m. and he is comfortable with this plan and disposition. Differential Diagnosis: Differential diagnosis considered includes gastroenteritis, peptic ulcer disease , appendicitis, perforation, obstruction, nephrolithiasis, pyelonephritis - Data Points Laboratory Results: Laboratory Results 01/14/19 19:10 01/14/19 19:10 01/14/19 01/14/19 01/14/19 20:01 19:18 19:10 WBC RBC Hgb POC Hgb 16.3 gm/dL gm/dL (13.7-17.5) Hct POC Hct 48 % % (40-51) MCV MCH MCHC RDW Plt Count MPV Neut % (Auto) Lymph % (Auto) [place] % (Auto) Eos % (Auto) Baso % (Auto) Nucleat RBC Rel Count Absolute Neuts (auto) Absolute Lymphs (auto) Absolute Monos (auto) Absolute Eos (auto) Absolute Basos (auto) Absolute Nucleated RBC Immature Gran % Immature Gran # POC Sodium 142 mEq/L mEq/L (135-145) Sodium POC Potassium 3.6 mEq/L mEq/L (3.3-5.0) Potassium POC Chloride 105 mEq/L mEq/L (97-110) Chloride Carbon Dioxide POC Total CO2 24 mEq/L mEq/L (22-31) Anion Gap POC BUN 12 mg/dL mg/dL (7-23) BUN Creatinine POC Creatinine 1.0 mg/dL mg/dL (0.7-1.3) Estimated GFR Glucose POC Glucose 104 mg/dL H mg/dL (70-100) Calcium Total Bilirubin 0.8 mg/dL mg/dL (0.1-1.4) Conjugated Bilirubin 0.2 mg/dL mg/dL (0.0-0.5) Unconjugated Bilirubin 0.6 mg/dL mg/dL (0.0-1.1) AST 35 IU/L IU/L (17-59) ALT 40 IU/L IU/L (21-72) Alkaline Phosphatase 84 IU/L IU/L (38-126) Total Protein 7.2 g/dL g/dL (6.3-8.2) Albumin 4.4 g/dL g/dL (3.5-5.0) Lipase 189 IU/L IU/L (23-300) Urine Color YELLOW Urine Appearance CLEAR Urine pH 8.0 H (5.0-7.5) Ur Specific Rhodes 1.031 H (1.002-1.030) Urine Protein NEGATIVE (NEGATIVE) Urine Ketones NEGATIVE (NEGATIVE) Urine Blood NEGATIVE (NEGATIVE) Urine Nitrate NEGATIVE (NEGATIVE) Urine Bilirubin NEGATIVE (NEGATIVE) Urine Urobilinogen NEGATIVE EU EU (0.2-1.0) Ur Leukocyte Esterase NEGATIVE (NEGATIVE) Urine Glucose NEGATIVE (NEGATIVE) 01/14/19 01/14/19 19:10 19:10 WBC 8.80 10^3/uL 10^3/uL (3.80-9.50) RBC 5.37 10^6/uL 10^6/uL (4.40-6.38) Hgb 15.9 g/dL g/dL (13.7-17.5) POC Hgb Hct 47.6 % % (40.0-51.0) POC Hct MCV 88.6 fL fL (81.5-99.8) MCH 29.6 pg pg (27.9-34.1) MCHC 33.4 g/dL g/dL (32.4-36.7) RDW 14.2 % % (11.5-15.2) Plt Count 191 10^3/uL 10^3/uL (150-400) MPV 10.4 fL fL (8.7-11.7) Neut % (Auto) 79.9 % H % (39.3-74.2) Lymph % (Auto) 10.7 % L % (15.0-45.0) Independence % (Auto) 8.3 % % (4.5-13.0) Eos % (Auto) 0.3 % L % (0.6-7.6) Baso % (Auto) 0.6 % % (0.3-1.7) Nucleat RBC Rel Count 0.0 % % (0.0-0.2) Absolute Neuts (auto) 7.03 10^3/uL H 10^3/uL (1.70-6.50) Absolute Lymphs (auto) 0.94 10^3/uL L 10^3/uL (1.00-3.00) Absolute Monos (auto) 0.73 10^3/uL 10^3/uL (0.30-0.80) Absolute Eos (auto) 0.03 10^3/uL 10^3/uL (0.03-0.40) Absolute Basos (auto) 0.05 10^3/uL 10^3/uL (0.02-0.10) Absolute Nucleated RBC 0.00 10^3/uL 10^3/uL (0-0.01) Immature Gran % 0.2 % % (0.0-1.1) Immature Gran # 0.02 10^3/uL 10^3/uL (0.00-0.10) POC Sodium Sodium 138 mEq/L mEq/L (135-145) POC Potassium Potassium 3.6 mEq/L mEq/L (3.5-5.2) POC Chloride Chloride 105 mEq/L mEq/L (97-110) Carbon Dioxide 24 mEq/l mEq/l (22-31) POC Total CO2 Anion Gap 9 mEq/L mEq/L (6-14) POC BUN BUN 14 mg/dL mg/dL (7-23) Creatinine 1.0 mg/dL mg/dL (0.7-1.3) POC Creatinine Estimated GFR > 60 Glucose 105 mg/dL H mg/dL (70-100) POC Glucose Calcium 9.1 mg/dL mg/dL (8.5-10.4) Total Bilirubin Conjugated Bilirubin Unconjugated Bilirubin AST ALT Alkaline Phosphatase Total Protein Albumin Lipase Urine Color Urine Appearance Urine pH Ur Specific Rhodes Urine Protein Urine Ketones Urine Blood Urine Nitrate Urine Bilirubin Urine Urobilinogen Ur Leukocyte Esterase Urine Glucose Medications Given: Discontinued Medications Ondansetron HCl (Zofran) 4 mg IVP EDNOW ONE Stop: 01/14/19 19:44 Last Admin: 01/14/19 19:43 Dose: 4 mg Point of Care Test Results: Chemistry 01/14/19 19:18 POC Sodium 142 mEq/L mEq/L (135-145) POC Potassium 3.6 mEq/L mEq/L (3.3-5.0) POC Chloride 105 mEq/L mEq/L (97-110) POC Total CO2 24 mEq/L mEq/L (22-31) POC BUN 12 mg/dL mg/dL (7-23) POC Creatinine 1.0 mg/dL mg/dL (0.7-1.3) POC Glucose 104 mg/dL H mg/dL (70-100) ISTAT H&H 01/14/19 19:18 POC Hgb 16.3 gm/dL gm/dL (13.7-17.5) POC Hct 48 % % (40-51) Departure - Departure Disposition: Home, Routine, Self-Care Clinical Impression: Abdominal pain Qualifiers: Abdominal location: right lower quadrant Qualified Code(s): R10.31 - Right lower quadrant pain Condition: Good Instructions: Acute Abdominal Pain (ED) Additional Instructions: Take Ibuprofen or Motrin 600 mg by mouth three times a day. Zofran as needed for nausea Sometimes we are unable to diagnose an obvious cause of abdominal pain in the Emergency Department. Based upon our evaluation today, we see no obvious explanation for your pain. Because more serious conditions can be difficult to diagnose early in the course of their presentation, we ask that you return to the Emergency Department in 8-12 hours for a recheck if you are still having pain. This is necessary to exclude the development of a more serious condition such as appendicitis or other intra-abdominal emergency. In the event your pain markedly increases before that time or you develop intractable vomiting or fever return to the Emergency Department immediately. Referrals: Annita Shine MD [Primary Care Provider] - As per Instructions
[2019-01-14 19:23] LABS: PLATELET COUNT 191 10^3/uL (150-400)
[2019-01-14] MEDS ORDERED: IOPAMIDOL (ISOVUE-300) 100 ML BTL ONE (19:39)
[2019-01-14] MEDS ORDERED: ONDANSETRON 4 MG/2 ML VIAL ONE (19:41)
[2019-01-14] MEDS ORDERED: ONDANSETRON 4 MG/2 ML VIAL IVP ONE (19:43)
[2019-01-14] MEDS ORDERED: KETOROLAC 30 MG/1 ML SDV IVP ONE (21:32)
[2019-01-14] MEDS ORDERED: KETOROLAC 30 MG/1 ML SDV ONE (21:33)
[2019-01-14] MEDS ORDERED: ONDANSETRON 4MG PREPACK#2 BTL TAKEHOME ONE (21:41)
[2019-01-14 21:45] VITALS: BP 113/80
== END 2019-01-14 22:01 | disposition home or self-care (01) ==
DX: R10.31 Right lower quadrant pain (principal); R11.10 Vomiting, unspecified
CPT/HCPCS: 74177; 96374; 96375; 99285; J1885; J2405; Q9967; 82435-PO; 82565-PO; 82947-PO; 84132-PO; 84295-PO; 84520-PO; 85014-ER